=== PATIENT | male | born 1940 | race Caucasian/White ===

== ENCOUNTER 2019-03-08 18:19 | Inpatient (IN) | payer MEDICARE, OTHER ==
--- NOTE | 2019-03-08 19:00 | EDM.PDOC ---
ED HPI GENERAL MEDICAL PROBLEM - General Chief Complaint: General Stated Complaint: EVAL FOR EXTREME WEIGHT LOSS Time Seen by Provider: 03/08/19 18:59 - History of Present Illness INITIAL COMMENTS - FREE TEXT/NARRATIVE: 78-year-old male presents emergency room with weight loss and generally not doing well. Patiently recently moved here from [place]. He arrived here on February 22 to be with family. 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 He has a significant past medical history of COPD, CLL and he was recently diagnosed with compression fractures in his back recent MRI shows fairly acute superior endplate fractures at L1 and L3 old compression fracture at L2. He is having significant weight loss with talking to the patient he is not eating much because she's not getting fed very much. He was in assisted living center in [place] and ate quite a bit. But appear he's just not eating he said when he was at [facility] he had very small servings. His daughter states she's tries to make an thinks he likes please just not eating he's lost well over 10 pounds since he's been here. He has oxygen dependent COPD - Related Data Allergies Allergy/AdvReac Type Severity Reaction Status Date / Time No Known Allergies Allergy Verified 03/08/19 18:33 Home Meds: Home Meds Acetaminophen 1,000 mg PO DAILY 03/08/19 [History] Albuterol Sulfate 1 puff INH Q6HR 03/08/19 [History] Atenolol 25 mg PO BID 03/08/19 [History] Budesonide 2 puff INH BID 03/08/19 [History] Ferrous Sulfate 325 mg PO BID 03/08/19 [History] Furosemide 80 mg PO DAILY 03/08/19 [History] Pantoprazole Sodium 40 mg PO BID 03/08/19 [History] Potassium Chloride 20 meq PO DAILY 03/08/19 [History] Tamsulosin HCl 0.4 mg PO DAILY 03/08/19 [History] Tiotropium [Spiriva] 18 mcg INH DAILY 03/08/19 [History] tiZANidine HCl [Tizanidine HCl] 2 mg PO TID 03/08/19 [History] Past Medical History Other HEENT History: allergic rhinitis Cardiovascular History: Reports: High Cholesterol, Hypertension Respiratory History: Reports: COPD Gastrointestinal History: Reports: GERD Genitourinary History: Reports: BPH Other Oncologic History: CLL - Infectious Disease History 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 - Past Surgical History GI Surgical History: Reports: Cholecystectomy, Hernia Repair/Other Neurological Surgical History: Reports: C-Spine Social & Family History - Tobacco Use Smoking Status *Q: Former Smoker Used Tobacco, but Quit: Yes Month/Year Tobacco Last Used: 15 years ago - Caffeine Use Caffeine Use: Reports: Coffee - Recreational Drug Use Recreational Drug Use: No ED ROS GENERAL - Review of Systems Review Of Systems: See Below Constitutional: Reports: No Symptoms HEENT: Reports: No Symptoms Respiratory: Reports: Shortness of Breath (Chronic no worse than normal), Cough , Sputum (No worse than normal) Cardiovascular: Reports: No Symptoms Endocrine: Reports: No Symptoms GI/Abdominal: Reports: No Symptoms, Decreased Appetite. Denies: Constipation, Diarrhea, Nausea, Vomiting : Reports: No Symptoms Musculoskeletal: Reports: No Symptoms Skin: Reports: No Symptoms Neurological: Reports: No Symptoms Psychiatric: Reports: No Symptoms Hematologic/Lymphatic: Reports: Other (History of CLL he gets follow-ups every 6 months) ED EXAM, GENERAL - Physical Exam Exam: See Below Exam Limited By: No Limitations General Appearance: Alert, No Apparent Distress Eye Exam: Bilateral Eye: Normal Inspection Ears: Normal External Exam, Normal Canal, Hearing Grossly Normal, Normal TMs Nose: Normal Inspection, Normal Mucosa, No Blood Throat/Mouth: Normal Inspection, Normal Lips, Normal Gums, Normal Oropharynx, Normal Voice, No Airway Compromise, Other (Semi-dry mucosa) Head: Atraumatic, Normocephalic Neck: Normal Inspection, Supple, Non-Tender, Full Range of Motion. No: Lymphadenopathy (L), Lymphadenopathy (R) Respiratory/Chest: No Respiratory Distress, Lungs Clear, Normal Breath Sounds Cardiovascular: Regular Rate, Rhythm, No Edema, No Murmur GI/Abdominal: Normal Bowel Sounds, Soft, Non-Tender Back Exam: Normal Inspection, Vertebral Tenderness (In the upper lumbar region) . No: CVA Tenderness (L), CVA Tenderness (R) Extremities: Normal Inspection, Non-Tender Neurological: Alert, Oriented, Normal Cognition Psychiatric: Normal Affect, Normal Mood Skin Exam: Warm, Dry, Intact, Other (He has off color scanned almost looks jaundiced) Course - Vital Signs Last Recorded V/S: Last Vital Signs Temp 36.4 C 03/08/19 18:33 Pulse 72 03/08/19 18:33 Resp 16 03/08/19 18:33 BP 138/45 L 03/08/19 18:33 Pulse Ox 90 L 03/08/19 18:33 - Orders/Labs/Meds Orders: Active Orders 24 hr Category Date Time Status EKG Documentation Completion [RC] STAT Care 03/08/19 19:29 Active Chest 2V [CR] Stat Exams 03/08/19 19:27 Taken Sodium Chloride 0.45% @ 75 MLS/HR(1000ml) Med 03/08/19 22:30 Ordered Sodium Chloride 0.45% 1,000 ml IV ASDIRECTED Medication Orders Sodium Chloride (Sodium Chloride 0.45%) 1,000 mls @ 75 mls/hr IV ASDIRECTED RODRICK Last Admin: 03/08/19 22:40 Dose: 75 mls/hr Labs: Laboratory Tests 03/08/19 03/08/19 03/08/19 Range/Units 19:52 19:52 19:52 WBC 35.51 H (4.23-9.07) K/mm3 RBC 3.64 L (4.63-6.08) M/mm3 Hgb 11.0 L (13.7-17.5) gm/L Hct 37.0 L (40.1-51.0) % MCV 101.6 H (79.0-92.2) fl MCH 30.2 (25.7-32.2) pg MCHC 29.7 L (32.2-35.5) g/dl RDW Std Deviation 49.3 H (35.1-43.9) fL Plt Count 75 L (163-337) K/mm3 MPV 9.9 (9.4-12.3) fl Neutrophils % (Manual) 11 L (40-60) % Band Neutrophils % 2 (0-10) % Lymphocytes % (Manual) 86 H (20-40) % Atypical Lymphs % 0 % Monocytes % (Manual) 0 L (2-10) % Eosinophils % (Manual) 1 (0.8-7.0) % Basophils % (Manual) 0 L (0.2-1.2) Platelet Estimate Marked dec Plt Morphology Comment Normal Hypochromasia 1+ slight Anisocytosis 2+ moderate Macrocytosis 2+ moderate Ovalocytes 2+ moderate RBC Morph Comment Not Reportable PT 10.3 (9.5-12.1) SECONDS INR 0.94 Sodium 143 (136-145) mEq/L Potassium 5.2 H (3.5-5.1) mEq/L Chloride 104 (98-107) mEq/L Carbon Dioxide 37 H (21-32) mEq/L Anion Gap 7.2 (5-15) BUN 47 H (7-18) mg/dL Creatinine 1.1 (0.7-1.3) mg/dL Est Cr Clr Drug Dosing 56.24 mL/min Estimated GFR (MDRD) > 60 (>60) mL/min BUN/Creatinine Ratio 42.7 H (14-18) Glucose 100 (83-115) mg/dL Calcium 9.0 (8.5-10.1) mg/dL Total Bilirubin 0.7 (0.2-1.0) mg/dL AST 9 L (15-37) U/L ALT 12 L (16-63) U/L Alkaline Phosphatase 94 (46-116) U/L Total Protein 6.6 (6.4-8.2) g/dl Albumin 3.0 L (3.4-5.0) g/dl Globulin 3.6 gm/dL Albumin/Globulin Ratio 0.8 L (1-2) Urine Color (Yellow) Urine Appearance (Clear) Urine pH (5.0-8.0) Ur Specific [place] (1.005-1.030) Urine Protein (Negative) Urine Glucose (UA) (Negative) Urine Ketones (Negative) Urine Occult Blood (Negative) Urine Nitrite (Negative) Urine Bilirubin (Negative) Urine Urobilinogen (0.2-1.0) Ur Leukocyte Esterase (Negative) Urine RBC (0-5) /hpf Urine WBC (0-5) /hpf Ur Squamous Epith Cells (0-5) /hpf Urine Bacteria (FEW) /hpf Urine Mucus (FEW) /hpf 03/08/19 Range/Units 21:21 WBC (4.23-9.07) K/mm3 RBC (4.63-6.08) M/mm3 Hgb (13.7-17.5) gm/L Hct (40.1-51.0) % MCV (79.0-92.2) fl MCH (25.7-32.2) pg MCHC (32.2-35.5) g/dl RDW Std Deviation (35.1-43.9) fL Plt Count (163-337) K/mm3 MPV (9.4-12.3) fl Neutrophils % (Manual) (40-60) % Band Neutrophils % (0-10) % Lymphocytes % (Manual) (20-40) % Atypical Lymphs % % Monocytes % (Manual) (2-10) % Eosinophils % (Manual) (0.8-7.0) % Basophils % (Manual) (0.2-1.2) Platelet Estimate Plt Morphology Comment Hypochromasia Anisocytosis Macrocytosis Ovalocytes RBC Morph Comment PT (9.5-12.1) SECONDS INR Sodium (136-145) mEq/L Potassium (3.5-5.1) mEq/L Chloride (98-107) mEq/L Carbon Dioxide (21-32) mEq/L Anion Gap (5-15) BUN (7-18) mg/dL Creatinine (0.7-1.3) mg/dL Est Cr Clr Drug Dosing mL/min Estimated GFR (MDRD) (>60) mL/min BUN/Creatinine Ratio (14-18) Glucose (83-115) mg/dL Calcium (8.5-10.1) mg/dL Total Bilirubin (0.2-1.0) mg/dL AST (15-37) U/L ALT (16-63) U/L Alkaline Phosphatase (46-116) U/L Total Protein (6.4-8.2) g/dl Albumin (3.4-5.0) g/dl Globulin gm/dL Albumin/Globulin Ratio (1-2) Urine Color Yellow (Yellow) Urine Appearance Clear (Clear) Urine pH 5.5 (5.0-8.0) Ur Specific [place] 1.020 (1.005-1.030) Urine Protein Negative (Negative) Urine Glucose (UA) Negative (Negative) Urine Ketones Negative (Negative) Urine Occult Blood 1+ H (Negative) Urine Nitrite Negative (Negative) Urine Bilirubin 1+ H (Negative) Urine Urobilinogen 0.2 (0.2-1.0) Ur Leukocyte Esterase Negative (Negative) Urine RBC Not seen (0-5) /hpf Urine WBC 0-5 (0-5) /hpf Ur Squamous Epith Cells 5-10 H (0-5) /hpf Urine Bacteria Not seen (FEW) /hpf Urine Mucus Not seen (FEW) /hpf Meds: Medications Generic Name Dose Route Start Last Admin Trade Name Kinza PRN Reason Stop Dose Admin Sodium Chloride 1,000 mls @ 75 mls/hr 03/08/19 22:30 03/08/19 22:40 Sodium Chloride 0.45% IV 75 mls/hr ASDIRECTED RODRICK Administration - Re-Assessments/Exams Free Text/Narrative Re-Assessment/Exam: 03/08/19 22:51 This gentleman is having difficulties maintaining his weight. He has a history of CLL COPD and has recently been diagnosed with compression fractures in the back recent MRI shows fairly acute fractures at L1 and L3 with soup. Endplate deformity retropulsion into the canal he is not having symptoms other than localized back pain from this that he has an old compression fracture at L2. Laboratory evaluation shows that he is dry potassium slightly elevated at 5.2 sodium and chloride are normal restarted on a gentle fluid of half and S at 75 mL an hour because I don't know if he will tolerate large doses of fluid.. Patient will be placed on I do not know the status of him going back to a [facility] facility. And he may have the possibility of making a back home with his daughter. The patient is a DNR. We are to treat with easily treatable patient and family do not wish to be transferred if services are not available here. 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 Departure - Departure Time of Disposition: 22:54 Disposition: Refer to Observation Clinical Impression: Failure to thrive, CLL (chronic lymphocytic leukemia) - Discharge Information Referrals: Alda Hauser PA-C [Primary Care Provider] - Forms: ED Department Discharge - My Orders Last 24 Hours: My Active Orders 03/08/19 19:27 Chest 2V [CR] Stat 03/08/19 19:29 EKG Documentation Completion [RC] STAT 03/08/19 22:30 Sodium Chloride 0.45% @ 75 MLS/HR(1000ml) Sodium Chloride 0.45% 1,000 ml IV ASDIRECTED - Assessment/Plan Last 24 Hours: My Active Orders 03/08/19 19:27 Chest 2V [CR] Stat 03/08/19 19:29 EKG Documentation Completion [RC] STAT 03/08/19 22:30 Sodium Chloride 0.45% @ 75 MLS/HR(1000ml) Sodium Chloride 0.45% 1,000 ml IV ASDIRECTED
[2019-03-08] MEDS ORDERED: Sodium Chloride 0.45% 1,000 ML IV SCH (22:30)
[2019-03-09] MEDS ORDERED: cefTRIAXone 2 GM in Sodium Chloride 0.9% 100 ML IV ONE ×4 (00:06→02:15)
[2019-03-09] MEDS ORDERED: Doxycycline 100 MG Cap PO ONE ×2 (00:08→02:00)
[2019-03-09] MEDS ORDERED: Acetaminophen/oxyCODONE 325-5 MG Tab PO PRN (00:19)
[2019-03-09] MEDS ORDERED: Acetaminophen 325 MG Tab PO PRN (00:43)
--- NOTE | 2019-03-09 07:20 | CR ---
Chest: Two views of the chest are obtained. Comparison: No prior chest imaging is available. Heart size is normal. Tortuous thoracic aorta is seen. Slight scarring noted within the right lung base which appears to be within the right middle lobe on the lateral view. Lung markings are mildly increased which are most likely chronic but would need old chest x-rays to confirm. Diaphragms are flattened on the lateral view compatible with emphysematous change. Bony structures are osteopenic. Scoliosis is noted within the spine. Impression: 1. Emphysematous change. 2. Presumed scarring within the right middle lobe. No definite acute parenchymal change is definitely seen. If patient continues to be symptomatic, follow-up study could be considered to confirm stability of the chest x-ray. Diagnostic code #3 I agree with preliminary report issued by [facility] ([facility] report finalized on 5018, 1:02 AM Central Time.) Code #2
--- NOTE | 2019-03-09 07:32 | PCM.HP.2 ---
H&P History of Present Illness - General Date of Service: 03/09/19 Admit Problem/Dx: Admission Diagnosis/Problem Admission Diagnosis/Problem Failure to thrive in adult Source of Information: Patient, Old Records, Provider, RN, RN Notes Reviewed History Limitations: Reports: No Limitations - History of Present Illness Initial Comments - Free Text/Narative: Rafy Palacio is a 78-year-old male who presents to our ED on 03/08/19 with weight loss and failure to thrive. Patient's daughter reports she was trying to have the patient establish with a primary care provider locally. He was being seen by Alda Hauser PA-C, who sent the patient down to the emergency room. He reportedly is also trying to establish with Dr. Guzman but that appointment is not for several weeks. The patient had reportedly recently moved here from [place], arriving on February 22. She was reportedly laced in assisted living however shortly after being admitted he was "infected" due to the arm wound growing out resistant Klebsiella pneumoniae ESBL/Kpc and enterococcus faecalis. He does carry history of COPD and CLL. He also was recently diagnosed with compression fractures in his back. This was noted on MRI showing acute fairly acute endplate fractures at L1 and L3 along with the old compression fracture at L2. Patient reports he lost quite a bit of weight and he is not being fed very much. His reportedly in assisted living in [place] and was doing much better. He's been living with his daughter who has been attempting to make things he'll eat but she states he just isn't eating much. He's lost well over 10 pounds since he's been here. He is oxygen dependent due to COPD with 2 L at all times and 3 L with activity. In the ED temperature 36.4 Celsius. Pulse 72. Respirations 16. Blood pressure 138/45. Pulse ox 90%. Labs are obtained showing a WBC of 35.51. Hemoglobin 11.0. Hematocrit 37.0. He is macrocytic. Platelets are low at 75, 000. Neutrophils are low at 11%. There is 2% bandemia. PT is 10.3. INR 0.94. Sodium is 143. Potassium is high at 5.2. Chloride is 104. Carbon monoxide is high at 37. Anion gap is 7.2. BUN is high at 47. Creatinine is 1.1. EGFR greater than 60. Glucose is 100. Calcium 9.0. Total bilirubin 0.7. AST is 9, ALT 12, alkaline phosphatase 94. Protein is good at 6.6. Albumin is low at 3.0. UA is negative however one plus occult blood 1+ bilirubin, and 5-10 squamous epithelial cells are noted. Twelve-lead EKG is obtained showing sinus rhythm at 52 bpm with a right bundle branch block. He started on NS at 75 mils an hour. 2 view chest x-rays obtained and there is a questionable infiltrate noted in the retrocardiac region. This was later over read by Dr. Huffman who noted "1. Emphysematous change. 2. Presumed scarring within the right middle lobe. No definite acute parenchymal changes definitively seen. If patient continues to be symptomatic, follow-up study could be considered to confirm stability of the chest x-ray." He carries a history of allergic rhinitis, HLD, hypertension, COPD, GERD, BPH, CLL. He is a former smoker. His PCP is Alda Humphreys PA-C, although he is set to see Dr. Guzman in the next few weeks. He subsequently admitted for failure to thrive and a possible pneumonia. - Related Data Allergies/Adverse Reactions: Allergies Allergy/AdvReac Type Severity Reaction Status Date / Time No Known Allergies Allergy Verified 03/08/19 18:33 Home Medications: Home Meds Acetaminophen 1,000 mg PO BEDTIME 03/08/19 [History] Albuterol Sulfate 1 puff INH Q6HR 03/08/19 [History] Atenolol 25 mg PO BID 03/08/19 [History] Budesonide 2 puff INH BID 03/08/19 [History] Ferrous Sulfate 325 mg PO BID 03/08/19 [History] Furosemide 80 mg PO DAILY 03/08/19 [History] Pantoprazole Sodium 40 mg PO BID 03/08/19 [History] Potassium Chloride 20 meq PO DAILY 03/08/19 [History] Tamsulosin HCl 0.4 mg PO DAILY 03/08/19 [History] Tiotropium [Spiriva] 18 mcg INH DAILY 03/08/19 [History] tiZANidine HCl [Tizanidine HCl] 2 mg PO TID PRN 03/08/19 [History] Past Medical History Other HEENT History: allergic rhinitis Cardiovascular History: Reports: Heart Failure, High Cholesterol, Hypertension, SOB on Exertion Respiratory History: Reports: Bronchitis, Recurrent, COPD, Pneumonia, Recurrent Gastrointestinal History: Reports: GERD Genitourinary History: Reports: BPH Musculoskeletal History: Reports: Neck Pain, Chronic Other Oncologic History: CLL - Infectious Disease History Infectious Disease History: Reports: Chicken Pox, [id number]-Afgvbkyymw-Takoqwjxz Enterobacteriaceae, Measles, Mumps - Past Surgical History HEENT Surgical History: Reports: None Cardiovascular Surgical History: Reports: None Respiratory Surgical History: Reports: None GI Surgical History: Reports: Cholecystectomy, Hernia Repair/Other Other GI Surgeries/Procedures: Hernia repair to bilat sides Male Surgical History: Reports: None Neurological Surgical History: Reports: C-Spine, Other (See Below) Other Neurological Surgeries/Procedures: Several fusions to the upper neck and back Musculoskeletal Surgical History: Reports: Other (See Below) Other Musculoskeletal Surgeries/Procedures:: Neck surgery with fusion of several vertebrae in the neck and upper back Social & Family History - Family History Family Medical History: Noncontributory - Tobacco Use Smoking Status *Q: Former Smoker Used Tobacco, but Quit: Yes Month/Year Tobacco Last Used: 1999 Second Hand Smoke Exposure: No - Caffeine Use Caffeine Use: Reports: None - Recreational Drug Use Recreational Drug Use: No H&P Review of Systems - Review of Systems: Review Of Systems: See Below Free Text/Narrative: Patient reports he feels exactly the same as he always does. Denies any acute symptoms or concerns over sickness. He reports he was recently discharged from the hospital in [place] from [facility]. He is still noted to have adhesive on left leg from [employer]. Daughter reports patient was only brought to ED due to weight loss and being told to go to ED by new PCP. General: Reports: Weakness, Weight Loss. Denies: Fever, Chills, Malaise, Fatigue, Night Sweats HEENT: Reports: No Symptoms. Denies: Headaches, Sore Throat Pulmonary: Reports: Shortness of Breath (Chronic but currently at baseline ), Cough (chronic - currenlty at ). Denies: Wheezing, Pleuritic Chest Pain, Sputum Cardiovascular: Reports: No Symptoms. Denies: Chest Pain, Edema Gastrointestinal: Reports: No Symptoms. Denies: Abdominal Pain, Melena, Nausea , Vomiting Genitourinary: Reports: No Symptoms. Denies: Pain Musculoskeletal: Reports: No Symptoms. Denies: Neck Pain, Shoulder Pain, Back Pain, Leg Pain, Muscle Pain Skin: Reports: Bruising (Scattered bruising ). Denies: Cyanosis Psychiatric: Reports: No Symptoms. Denies: Confusion Neurological: Reports: No Symptoms, Difficulty Walking, Weakness, Gait Disturbance. Denies: Confusion, Dizziness, Headache, Numbness, Paresthesia, Seizure, Syncope, Tremors, Trouble Speaking, Change in Speech Hematologic/Lymphatic: Reports: Anemia (Chronic ), Easy Bruising Immunologic: Reports: No Symptoms Exam - Exam Exam: See Below - Vital Signs Vital Signs: Last Vital Signs Temp 97.7 F 03/09/19 04:39 Pulse 69 03/09/19 04:39 Resp 12 03/09/19 04:39 BP 130/70 03/09/19 04:39 Pulse Ox 98 03/09/19 04:39 Weight: 135 lb 3.2 oz - Exam Quality Assessment: Supplemental Oxygen (Chronic 2L daily, 3L at night - currently at baseline ) General: Alert, Oriented, Cooperative. No: Mild Distress HEENT: Conjunctiva Clear, EACs Clear, EOMI, Hearing Intact, Mucosa Moist & [place] , Posterior Pharynx Clear, PERRLA Neck: Supple, Trachea Midline Lungs: Normal Respiratory Effort, Decreased Breath Sounds. No: Crackles, Rales , Rhonchi, Wheezing Cardiovascular: Regular Rate, Regular Rhythm GI/Abdominal Exam: Normal Bowel Sounds, Soft, Non-Tender, No Organomegaly, No Distention (Male) Exam: Deferred Rectal (Males) Exam: Deferred Back Exam: Decreased Range of Motion, Other (Scoliosis ) Peripheral Pulses: 2+: Radial (L), Radial (R), Dorsalis Pedis (L), Dorsalis Pedis (R) Skin: Warm, Dry, Ecchymosis (Scattered ), Other (Excoriations over buttocks and in groin. Nursing applied a mepilex to area. ) Neurological: Cranial Nerves Intact (Grossly ) Neuro Extensive - Mental Status: Alert, Oriented x3, Normal Mood/Affect, Normal Cognition - Patient Data Lab Results Last 24 hrs: Laboratory Results - last 24 hr 03/08/19 03/08/19 03/08/19 Range/Units 19:52 19:52 19:52 WBC 35.51 H (4.23-9.07) K/mm3 RBC 3.64 L (4.63-6.08) M/mm3 Hgb 11.0 L (13.7-17.5) gm/L Hct 37.0 L (40.1-51.0) % MCV 101.6 H (79.0-92.2) fl MCH 30.2 (25.7-32.2) pg MCHC 29.7 L (32.2-35.5) g/dl RDW Std Deviation 49.3 H (35.1-43.9) fL Plt Count 75 L (163-337) K/mm3 MPV 9.9 (9.4-12.3) fl Neutrophils % (Manual) 11 L (40-60) % Band Neutrophils % 2 (0-10) % Lymphocytes % (Manual) 86 H (20-40) % Atypical Lymphs % 0 % Monocytes % (Manual) 0 L (2-10) % Eosinophils % (Manual) 1 (0.8-7.0) % Basophils % (Manual) 0 L (0.2-1.2) Differential Comment See note Platelet Estimate Marked dec Plt Morphology Comment Normal Hypochromasia 1+ slight Anisocytosis 2+ moderate Macrocytosis 2+ moderate Ovalocytes 2+ moderate RBC Morph Comment Not Reportable PT 10.3 (9.5-12.1) SECONDS INR 0.94 Sodium 143 (136-145) mEq/L Potassium 5.2 H (3.5-5.1) mEq/L Chloride 104 (98-107) mEq/L Carbon Dioxide 37 H (21-32) mEq/L Anion Gap 7.2 (5-15) BUN 47 H (7-18) mg/dL Creatinine 1.1 (0.7-1.3) mg/dL Est Cr Clr Drug Dosing 56.24 mL/min Estimated GFR (MDRD) > 60 (>60) mL/min BUN/Creatinine Ratio 42.7 H (14-18) Glucose 100 (83-115) mg/dL Calcium 9.0 (8.5-10.1) mg/dL Total Bilirubin 0.7 (0.2-1.0) mg/dL AST 9 L (15-37) U/L ALT 12 L (16-63) U/L Alkaline Phosphatase 94 (46-116) U/L Total Protein 6.6 (6.4-8.2) g/dl Albumin 3.0 L (3.4-5.0) g/dl Globulin 3.6 gm/dL Albumin/Globulin Ratio 0.8 L (1-2) Urine Color (Yellow) Urine Appearance (Clear) Urine pH (5.0-8.0) Ur Specific [place] (1.005-1.030) Urine Protein (Negative) Urine Glucose (UA) (Negative) Urine Ketones (Negative) Urine Occult Blood (Negative) Urine Nitrite (Negative) Urine Bilirubin (Negative) Urine Urobilinogen (0.2-1.0) Ur Leukocyte Esterase (Negative) Urine RBC (0-5) /hpf Urine WBC (0-5) /hpf Ur Squamous Epith Cells (0-5) /hpf Urine Bacteria (FEW) /hpf Urine Mucus (FEW) /hpf 03/08/19 03/09/19 Range/Units 21:21 06:00 WBC (4.23-9.07) K/mm3 RBC (4.63-6.08) M/mm3 Hgb (13.7-17.5) gm/L Hct (40.1-51.0) % MCV (79.0-92.2) fl MCH (25.7-32.2) pg MCHC (32.2-35.5) g/dl RDW Std Deviation (35.1-43.9) fL Plt Count (163-337) K/mm3 MPV (9.4-12.3) fl Neutrophils % (Manual) (40-60) % Band Neutrophils % (0-10) % Lymphocytes % (Manual) (20-40) % Atypical Lymphs % % Monocytes % (Manual) (2-10) % Eosinophils % (Manual) (0.8-7.0) % Basophils % (Manual) (0.2-1.2) Differential Comment Platelet Estimate Plt Morphology Comment Hypochromasia Anisocytosis Macrocytosis Ovalocytes RBC Morph Comment PT (9.5-12.1) SECONDS INR Sodium 143 (136-145) mEq/L Potassium 4.7 (3.5-5.1) mEq/L Chloride 103 (98-107) mEq/L Carbon Dioxide 35 H (21-32) mEq/L Anion Gap 9.7 (5-15) BUN 42 H (7-18) mg/dL Creatinine 1.0 (0.7-1.3) mg/dL Est Cr Clr Drug Dosing 53.66 mL/min Estimated GFR (MDRD) > 60 (>60) mL/min BUN/Creatinine Ratio 42.0 H (14-18) Glucose 91 (83-115) mg/dL Calcium 8.7 (8.5-10.1) mg/dL Total Bilirubin (0.2-1.0) mg/dL AST (15-37) U/L ALT (16-63) U/L Alkaline Phosphatase (46-116) U/L Total Protein (6.4-8.2) g/dl Albumin (3.4-5.0) g/dl Globulin gm/dL Albumin/Globulin Ratio (1-2) Urine Color Yellow (Yellow) Urine Appearance Clear (Clear) Urine pH 5.5 (5.0-8.0) Ur Specific [place] 1.020 (1.005-1.030) Urine Protein Negative (Negative) Urine Glucose (UA) Negative (Negative) Urine Ketones Negative (Negative) Urine Occult Blood 1+ H (Negative) Urine Nitrite Negative (Negative) Urine Bilirubin 1+ H (Negative) Urine Urobilinogen 0.2 (0.2-1.0) Ur Leukocyte Esterase Negative (Negative) Urine RBC Not seen (0-5) /hpf Urine WBC 0-5 (0-5) /hpf Ur Squamous Epith Cells 5-10 H (0-5) /hpf Urine Bacteria Not seen (FEW) /hpf Urine Mucus Not seen (FEW) /hpf Result Diagrams: 03/08/19 19:52 03/09/19 06:00 - Problem List (1) Hospital admission due to social situation SNOMED Code(s): 939195299 ICD Code: Z60.9 - PROBLEM RELATED TO SOCIAL ENVIRONMENT, UNSPECIFIED Status : Acute Priority: High Current Visit: Yes (2) CLL (chronic lymphocytic leukemia) SNOMED Code(s): 30581807 ICD Code: C91.90 - LYMPHOID LEUKEMIA, UNSPECIFIED NOT HAVING ACHIEVED REMISSION Status: Chronic Priority: High Current Visit: Yes (3) Failure to thrive SNOMED Code(s): 36567980 ICD Code: GYQ9254 - Status: Acute Priority: High Current Visit: Yes Qualifiers: Failure to thrive age range: in adult Qualified Code(s): R62.7 - Adult failure to thrive Problem List Initiated/Reviewed/Updated: Yes Orders Last 24hrs: Active Orders 24 hr Category Date Time Status Admission Status [Patient Status] [ADT] Routine ADT 03/08/19 23:33 Active Communication Order [RC] BID Care 03/09/19 00:27 Active Oxygen Therapy Adult [Oxygen Therapy] [RC] ASDIRECTED Care 03/09/19 02:56 Active Up With Assistance [RC] BID Care 03/09/19 00:24 Active Consult to Digital Production Artist [CONS] Routine Cons 03/09/19 00:26 Active Consult to Physical Therapy [PT Evaluation and Cons 03/09/19 00:25 Active Treatment] [CONS] Routine Regular Diet [DIET] Diet 03/09/19 Breakfast Active CXR [Chest 2V] [CR] Routine Exams 03/09/19 07:30 Ordered CULTURE BLOOD [BC] Stat Lab 03/09/19 01:51 Received CULTURE BLOOD [BC] Stat Lab 03/09/19 01:59 Received Acetaminophen [Tylenol] Med 03/09/19 00:43 Active 500 mg PO BEDTIME PRN Sodium Chloride 0.45% 1,000 ml Med 03/08/19 22:30 Active IV ASDIRECTED Blood Culture x2 Reflex Set [OM.PC] Stat Oth 03/09/19 00:05 Ordered Resuscitation Status Routine Resus Stat 03/09/19 00:24 Ordered Medication Orders Acetaminophen (Tylenol) 500 mg PO BEDTIME PRN PRN Reason: Pain Sodium Chloride (Sodium Chloride 0.45%) 1,000 mls @ 75 mls/hr IV ASDIRECTED RODRICK Last Admin: 03/08/19 22:40 Dose: 75 mls/hr Assessment/Plan Comment:: Assessment: * 78 yo male with CLL, COPD, HLD, HTN, GERD, and BPH admitted to floor for possible PNA and failure to thrive * Currently living with daughter and her 2 children after moving here in end of January * Very thin, has reportedly had significant weight loss and lack of appetite * Was in an [facility] in [place] prior to coming here. Was at [facility] here until recently * Several excoriations on buttocks and groin * Several bruises throughout body * Chronically O2 dependant: 2L always; 3L with activity - currently at baseline * No signs of active cellulitis during physical exam Plan: * Admit to hospital observation status * PT/OT * Digital Production Artist consult * CM/SW for discharge planning * Start Marinol BID for appetite * Routine AM labs * Repeat CXR: Stable lung markings; Linear densities appear to be fibrosis; Emphysematous change * No need for ABX * VTE score of 5: unfortunately pharmacological prophylaxis is contraindicated due to low platelets and DAVE/SCDs contraindicated due to significant bruising and condition of skin * Attempt to obtain old records from [place] * Stop IV fluids * O2 as needed * Back brace 2/2 lumbar compression fractures per PT.
[2019-03-09] MEDS ORDERED: Bisacodyl 5 MG Tab PO PRN (07:45)
[2019-03-09] MEDS ORDERED: Ondansetron 4 MG/2 ML SDV IV PRN (07:45)
[2019-03-09] MEDS ORDERED: Docusate Sodium 100 MG Cap PO PRN (07:45)
[2019-03-09] MEDS ORDERED: Ondansetron 4 MG Tab.DIS PO PRN (07:45)
[2019-03-09] MEDS ORDERED: Polyethylene Glycol 3350 Powder 17 GM Packet PO PRN (07:45)
[2019-03-09] MEDS ORDERED: Albuterol/Ipratropium 3.0-0.5 MG/3 ML Neb Soln NEB PRN (07:45)
--- NOTE | 2019-03-09 09:47 | CR ---
Chest: Two views of the chest were obtained. Comparison: Prior chest x-ray of 03/08/19. Increased lung markings are noted which appear stable. Stable linear densities within the right base/right middle lobe most likely due to fibrosis. No alveolar densities are appreciated. Emphysematous change is again seen. Heart size is normal. Tortuous thoracic aorta is seen. Mild degenerative change is noted within the spine with scoliosis. Impression: 1. Stable findings as noted above. Diagnostic code #3
[2019-03-09] MEDS ORDERED: PANTOPRAZOLE SODIUM 40 MG PO SCH (10:00)
[2019-03-09] MEDS ORDERED: TAMSULOSIN HCL 0.4 MG PO SCH (10:00)
[2019-03-09] MEDS ORDERED: ATENOLOL 25 MG PO SCH (10:00)
[2019-03-09] MEDS ORDERED: TIZANIDINE HCL 2 MG PO SCH (10:00)
[2019-03-09] MEDS: Ferrous Sulfate 325 MG Tab PO SCH (10:36)
[2019-03-09] MEDS: Furosemide 80 MG Tab PO SCH (10:43)
[2019-03-09] MEDS ORDERED: TIZANIDINE HCL 2 MG PO PRN (11:30)
[2019-03-09] MEDS ORDERED: IPRATROPIUM NEB PRN (12:00)
[2019-03-09] MEDS ORDERED: ALBUTEROL NEB PRN (12:00)
[2019-03-09] MEDS: TIOTROPIUM INH SCH ×2 (14:40→14:47)
[2019-03-09] MEDS ORDERED: Piperacillin/Tazobactam 4.5 GM in Sodium Chloride 0.9% 100 ML IV ONE (16:15)
[2019-03-09] MEDS ORDERED: Vancomycin 1.5 GM in Sodium Chloride 0.9% 500 ML IV ONE ×2 (16:30→18:30)
[2019-03-09] MEDS: Dronabinol 2.5 MG Cap PO SCH (16:52)
[2019-03-09] MEDS ORDERED: Sodium Chloride 0.9% 500 ML IV ONE (17:15)
[2019-03-09] MEDS ORDERED: Iopamidol 755 Mg/ML 100 ML Bottle IVPUSH ONE (17:23)
[2019-03-09] MEDS ORDERED: Sodium Chloride 0.9% 10 ML Syringe FLUSH SCH (17:30)
[2019-03-09] MEDS ORDERED: Sodium Chloride 0.9% 100 ML IV SCH (17:30)
[2019-03-09] MEDS ORDERED: Albuterol/Ipratropium 3.0-0.5 MG/3 ML Neb Soln INH PRN (18:55)
[2019-03-09] MEDS ORDERED: tiZANidine 4 MG Tab PO PRN (19:06)
[2019-03-09] MEDS: Atenolol 25 MG Tab PO SCH (20:16)
[2019-03-09] MEDS: Pantoprazole 40 MG Tab.CR PO SCH (20:17)
[2019-03-09] MEDS ORDERED: Acetaminophen 325 MG Tab PO SCH (21:00)
[2019-03-10] MEDS: Piperacillin/Tazobactam 4.5 GM in Sodium Chloride 0.9% 100 ML IV SCH ×2 (00:22→08:50)
--- NOTE | 2019-03-10 06:35 | PCM.PN ---
<Hipolito Liang - Last Filed: 03/10/19 15:00> - General Info Date of Service: 03/10/19 Admission Dx/Problem (Free Text): Admission Diagnosis/Problem Admission Diagnosis/Problem Failure to thrive in adult Subjective Update: in to see Rafy. He reports that he feels pretty good today. He did have a rather busy night as there was some concern over possible sepsis. He was started on vancomycin and Zosyn. This was stopped today as his lactic acid has been normal CRP was low, and infectious workup has been negative. Of note he has also fallen off of the sepsis screening risk guidelines and is no longer considered a sepsis risk. Labs remained stable with elevated WBC and low platelets. D-dimer was obtained last night and was elevated so a CTA was obtained. This showed no signs of pulmonary embolism or pneumonia however a possible pancreatic mass and scattered lymphadenopathy was noted. Due to this I radiologist, Dr. Huffman, recommended obtaining a abdomen and pelvis CT. These findings were discussed with patient and his family this morning and they agreed to proceeding. CT of the abdomen and pelvis was obtained and interpreted by Dr. Huffman as "1. Extensive retroperitoneal and mesenteric adenopathy as well as additional adenopathy within the inguinal regions. 2. Adenopathy surrounds the pancreas with no discrete pancreatic mass being seen. 3. Compression fractures. He within L1 which likely are fairly acute as there are lucent fracture lines being seen. More severe compression deformities at L2 is likely old as no fracture lines are seen. 4. Splenomegaly 5. Small amount of air within the liver which is most likely due to previous intervention at the sphincter of OD. 6. Other findings felt to be incidental as noted above. " Of note, Dr. Huffman does think the adenopathy is likely due to lymphoma. these results were discussed with the patient and his family and they would like us to try to see if we can get him accepted at a [facility] facility, likely in [place], for further treatment. He is a DNR/DNI however they would like to see oncology. Social work has been in communication with them. Otherwise no acute concerns, back pain remained stable. He continues to work with PT/OT. No nursing concerns. Patient does request that we removed telemetry of the boxes very annoying for him. This seems like a reasonable request and will be canceled. Functional Status: Reports: Pain Controlled, Tolerating Diet, Ambulating, Urinating. Denies: New Symptoms - Review of Systems General: Reports: Weakness. Denies: Fever, Fatigue, Malaise, Chills HEENT: Denies: Headaches, Sore Throat Pulmonary: Reports: Shortness of Breath (chronic and at baseline ), Cough ( chronic ). Denies: Sputum, Wheezing Cardiovascular: Reports: Dyspnea on Exertion (Chronic and at baseline ). Denies : Chest Pain, Palpitations Gastrointestinal: Reports: No Symptoms. Denies: Abdominal Pain, Constipation, Diarrhea, Nausea, Vomiting Genitourinary: Reports: No Symptoms Musculoskeletal: Reports: Back Pain (Chronic ) Skin: Reports: No Symptoms Neurological: Reports: Difficulty Walking, Weakness, Gait Disturbance. Denies: Confusion, Headache, Numbness, Seizure, Syncope, Tingling, Tremors, Trouble Speaking, Change in Speech Psychiatric: Reports: No Symptoms - Patient Data Vitals - Most Recent: Last Vital Signs Temp 98.1 F 03/10/19 04:13 Pulse 95 03/10/19 04:13 Resp 28 H 03/10/19 04:13 BP 102/75 03/10/19 04:13 Pulse Ox 97 03/10/19 04:13 Weight - Most Recent: 61.326 kg I&O - Last 24 Hours: Intake & Output 03/09/19 03/09/19 03/10/19 14:59 22:59 06:59 Intake Total 300 1710 400 Output Total 1020 600 Balance 300 690 -200 Lab Results Last 24 Hours: Laboratory Results - last 24 hr 03/08/19 03/09/19 03/09/19 Range/Units 19:52 06:00 16:41 Differential Comment See note D-Dimer, Quantitative (0.19-0.50) mg/L Sodium 143 (136-145) mEq/L Potassium 4.7 (3.5-5.1) mEq/L Chloride 103 (98-107) mEq/L Carbon Dioxide 35 H (21-32) mEq/L Anion Gap 9.7 (5-15) BUN 42 H (7-18) mg/dL Creatinine 1.0 (0.7-1.3) mg/dL Est Cr Clr Drug Dosing 53.66 mL/min Estimated GFR (MDRD) > 60 (>60) mL/min BUN/Creatinine Ratio 42.0 H (14-18) Glucose 91 (83-115) mg/dL Lactic Acid 0.9 (0.4-2.0) mmol/L Calcium 8.7 (8.5-10.1) mg/dL C-Reactive Protein (<1.0) mg/dL 03/09/19 03/09/19 Range/Units 16:41 16:41 Differential Comment D-Dimer, Quantitative 2.28 H (0.19-0.50) mg/L Sodium (136-145) mEq/L Potassium (3.5-5.1) mEq/L Chloride (98-107) mEq/L Carbon Dioxide (21-32) mEq/L Anion Gap (5-15) BUN (7-18) mg/dL Creatinine (0.7-1.3) mg/dL Est Cr Clr Drug Dosing mL/min Estimated GFR (MDRD) (>60) mL/min BUN/Creatinine Ratio (14-18) Glucose (83-115) mg/dL Lactic Acid (0.4-2.0) mmol/L Calcium (8.5-10.1) mg/dL C-Reactive Protein 1.9 H* (<1.0) mg/dL Nathan Results Last 24 Hours: Microbiology 03/09/19 01:51 Aerobic Blood Culture - Preliminary Blood - Venous NO GROWTH AFTER 1 DAY Anaerobic Blood Culture - Preliminary NO GROWTH AFTER 1 DAY 03/09/19 01:59 Aerobic Blood Culture - Preliminary Blood - Venous - Lab Draw NO GROWTH AFTER 1 DAY Anaerobic Blood Culture - Preliminary NO GROWTH AFTER 1 DAY Med Orders - Current: Current Medications Acetaminophen (Tylenol) 500 mg PO BEDTIME PRN PRN Reason: Pain Acetaminophen (Tylenol) 975 mg PO BEDTIME [facility] Last Admin: 03/09/19 20:16 Dose: 975 mg Albuterol/Ipratropium (Duoneb 3.0-0.5 Mg/3 Ml) 3 ml INH Q4H PRN PRN Reason: Shortness of Breath Atenolol (Tenormin) 25 mg PO BID [facility] Last Admin: 03/09/19 20:16 Dose: 25 mg Bisacodyl (Dulcolax) 5 mg PO DAILY PRN PRN Reason: Constipation Docusate Sodium (Colace) 100 mg PO BID PRN PRN Reason: Constipation Dronabinol (Marinol) 2.5 mg PO BID@1100,1700 [facility] Last Admin: 03/09/19 16:52 Dose: 2.5 mg Ferrous Sulfate (Ferrous Sulfate) 325 mg PO BID [facility] Last Admin: 03/09/19 10:36 Dose: Not Given Furosemide (Lasix) 80 mg PO DAILY [facility] Last Admin: 03/09/19 10:43 Dose: 80 mg Piperacillin Sod/Tazobactam (Sod 4.5 gm/ Sodium Chloride) 100 mls @ 25 mls/hr IV Q8H [facility] Last Admin: 03/10/19 00:22 Dose: 25 mls/hr Vancomycin HCl 1 gm/ Sodium (Chloride) 250 mls @ 250 mls/hr IV Q12H [facility] Non-Formulary Medication (Budesonide [Budesonide]) 2 puff INH BID [facility] Ondansetron HCl (Zofran) 4 mg IV Q6H PRN PRN Reason: Nausea/Vomiting Ondansetron HCl (Zofran Odt) 4 mg PO Q6H PRN PRN Reason: nausea, able to take PO Pantoprazole Sodium (Protonix) 40 mg PO BID [facility] Last Admin: 03/09/19 20:17 Dose: 40 mg Tiotropium 2.5 Mcg/ (Actuation Ptom) 0 each INH DAILY [facility] Last Admin: 03/09/19 14:47 Dose: Not Given Polyethylene Glycol (Miralax) 17 gm PO DAILY PRN PRN Reason: Constipation Senna/Docusate Sodium (Senna Plus) 1 tab PO BID PRN PRN Reason: Constipation Sodium Chloride (Saline Flush) 10 ml FLUSH ASDIRECTED [facility] Last Admin: 03/09/19 18:20 Dose: 10 ml Tamsulosin HCl (Flomax) 0.4 mg PO DAILY [facility] Tizanidine HCl (Zanaflex) 2 mg PO TID PRN PRN Reason: Muscle Spasm Vancomycin HCl (Pharmacy To Dose - Vancomycin) 1 dose .XX ASDIRECTED [facility] Discontinued Medications Albuterol/Ipratropium (Duoneb 3.0-0.5 Mg/3 Ml) 3 ml NEB Q4H PRN PRN Reason: Shortness Of Breath/wheezing Last Admin: 03/09/19 09:21 Dose: 3 ml Doxycycline Hyclate (Vibramycin) 100 mg PO ONETIME ONE Stop: 03/09/19 00:09 Last Admin: 03/09/19 01:40 Dose: Not Given Doxycycline Hyclate (Vibramycin) 100 mg PO ONETIME ONE Stop: 03/09/19 02:01 Last Admin: 03/09/19 02:20 Dose: 100 mg Sodium Chloride (Sodium Chloride 0.45%) 1,000 mls @ 75 mls/hr IV ASDIRECTED [facility] Last Admin: 03/08/19 22:40 Dose: 75 mls/hr Ceftriaxone Sodium 2 gm/ (Sodium Chloride) 100 mls @ 200 mls/hr IV ONETIME ONE Stop: 03/09/19 00:35 Last Admin: 03/09/19 01:40 Dose: Not Given Ceftriaxone Sodium 2 gm/ (Sodium Chloride) 100 mls @ 200 mls/hr IV ONETIME ONE Stop: 03/09/19 02:29 Last Admin: 03/09/19 05:49 Dose: Not Given Ceftriaxone Sodium 2 gm/ (Sodium Chloride) 100 mls @ 200 mls/hr IV ONETIME ONE Stop: 03/09/19 02:44 Ceftriaxone Sodium 2 gm/ (Sodium Chloride) 100 mls @ 200 mls/hr IV ONETIME ONE Stop: 03/09/19 02:29 Last Admin: 03/09/19 02:18 Dose: 200 mls/hr Piperacillin Sod/Tazobactam (Sod 4.5 gm/ Sodium Chloride) 100 mls @ 100 mls/hr IV ONETIME ONE Stop: 03/09/19 17:14 Last Admin: 03/09/19 16:51 Dose: 100 mls/hr Vancomycin HCl 1.5 gm/ Sodium (Chloride) 500 mls @ 167 mls/hr IV ONETIME ONE Stop: 03/09/19 19:29 Last Admin: 03/09/19 18:34 Dose: Not Given Sodium Chloride (Normal Saline) 500 mls @ 999 mls/hr IV .BOLUS ONE Stop: 03/09/19 17:45 Last Admin: 03/09/19 17:26 Dose: 999 mls/hr Sodium Chloride (Normal Saline) 100 mls @ 3 mls/sec IV ASDIRECTED [facility] Last Admin: 03/09/19 18:20 Dose: 3 mls/sec Vancomycin HCl 1.5 gm/ Sodium (Chloride) 500 mls @ 167 mls/hr IV ONETIME ONE Stop: 03/09/19 21:29 Last Admin: 03/09/19 18:34 Dose: 167 mls/hr Iopamidol (Isovue-370 (76%)) 100 ml IVPUSH ONETIME ONE Stop: 03/09/19 17:24 Last Admin: 03/09/19 18:20 Dose: 100 ml Oxycodone/Acetaminophen (Percocet 325-5 Mg) 1 tab PO BID PRN PRN Reason: Pain Atenolol 25 Mg (Ptom) 0 each PO BID [facility] Last Admin: 03/09/19 10:37 Dose: 1 each Pantoprazole Sodium (40 Mg Ptom) 0 each PO BID [facility] Last Admin: 03/09/19 10:38 Dose: 1 each Tamsulosin Hcl 0.4 (Mg Ptom) 0 each PO DAILY [facility] Last Admin: 03/09/19 10:39 Dose: 1 each Tizanidine Hcl 2 Mg (Ptom) 0 each PO TID [facility] Last Admin: 03/09/19 13:58 Dose: Not Given Albuterol/Ipratropium 3.0-0.5 Mg/3 Ml Neb Soln Ptom 0 each NEB Q4H PRN PRN Reason: Shortness Of Breath/wheezing Last Admin: 03/09/19 16:25 Dose: 3 each Tizanidine Hcl 2 Mg (Ptom) 0 each PO TID PRN PRN Reason: Muscle Spasm - Exam Quality Assessment: Supplemental Oxygen (Chronic and at baseline 3L). No: DVT Prophylaxis (Contraindicated due to low platelets and leg wounds ) General: Alert, Oriented, Cooperative, No Acute Distress HEENT: Pupils Equal, Pupils Reactive, EOMI, Mucous Membr. Moist/[place] Neck: Supple, Trachea Midline Lungs: Normal Respiratory Effort, Decreased Breath Sounds Cardiovascular: Regular Rate, Regular Rhythm GI/Abdominal Exam: Normal Bowel Sounds, Soft, Non-Tender, No Distention, No Abnormal Bruit (Male) Exam: Deferred Back Exam: Normal Inspection, Decreased Range of Motion Extremities: Normal Range of Motion, Non-Tender, No Pedal Edema, Normal Capillary Refill, Other (Scattered bruising ) Peripheral Pulses: 2+: Radial (L), Radial (R), Dorsalis Pedis (L), Dorsalis Pedis (R) Skin: Warm, Dry, Intact Neurological: No New Focal Deficit Psy/Mental Status: Alert, Normal Affect, Normal Mood - Problem List & Annotations (1) Hospital admission due to social situation SNOMED Code(s): 222497924 Code(s): Z60.9 - PROBLEM RELATED TO SOCIAL ENVIRONMENT, UNSPECIFIED Status : Acute Priority: High Current Visit: Yes (2) CLL (chronic lymphocytic leukemia) SNOMED Code(s): 06019482 Code(s): C91.90 - LYMPHOID LEUKEMIA, UNSPECIFIED NOT HAVING ACHIEVED REMISSION Status: Chronic Priority: High Current Visit: Yes (3) Failure to thrive SNOMED Code(s): 11157846 Code(s): XBZ2781 - Status: Acute Priority: High Current Visit: Yes Qualifiers: Failure to thrive age range: in adult Qualified Code(s): R62.7 - Adult failure to thrive - Problem List Review Problem List Initiated/Reviewed/Updated: Yes - My Orders Last 24 Hours: My Active Orders 03/09/19 07:45 Height and Weight [RC] 04 Oxygen Therapy [RC] PRN VTE/DVT Education [RC] BID Vital Signs [RC] Q6H Consult to Case Management/Branch Administrator [CONS] Routine Consult to Spiritual Care [CONS] Routine OT Evaluation and Treatment [CONS] Routine Bisacodyl [Dulcolax] 5 mg PO DAILY PRN Docusate Sodium [Colace] 100 mg PO BID PRN Docusate Sodium/Sennosides [Senna Plus] 1 tab PO BID PRN Ondansetron [Zofran ODT] 4 mg PO Q6H PRN Ondansetron [Zofran] 4 mg IV Q6H PRN Polyethylene Glycol 3350 [MiraLAX] 17 gm PO DAILY PRN 03/09/19 07:46 Pulse Oximetry [RC] PRN 03/09/19 07:48 RT Aerosol Therapy [RC] ASDIRECTED 03/09/19 09:00 Budesonide [Budesonide] 2 puff INH BID Ferrous Sulfate 325 mg PO BID 03/09/19 10:00 Furosemide [Lasix] 80 mg PO DAILY Patient's Own Medication [Ptom] 0 each INH DAILY 03/09/19 13:38 DME for Inpatients [OM.PC] Routine 03/09/19 16:02 Patient Status [ADT] Routine 03/09/19 16:15 Pharmacy to Dose - Vancomycin 1 dose .XX ASDIRECTED 03/09/19 16:41 PROCALCITONIN [REF] Stat 03/09/19 17:00 Dronabinol [Marinol] 2.5 mg PO BID@1100,1700 03/09/19 21:00 Acetaminophen [Tylenol] 975 mg PO BEDTIME 03/10/19 05:44 BASIC METABOLIC PANEL,BMP [CHEM] AM CBC WITH AUTO DIFF [HEME] AM MAGNESIUM [CHEM] AM 03/11/19 05:11 BASIC METABOLIC PANEL,BMP [CHEM] AM CBC WITH AUTO DIFF [HEME] AM MAGNESIUM [CHEM] AM 03/12/19 05:11 BASIC METABOLIC PANEL,BMP [CHEM] AM CBC WITH AUTO DIFF [HEME] AM MAGNESIUM [CHEM] AM 03/13/19 05:11 BASIC METABOLIC PANEL,BMP [CHEM] AM CBC WITH AUTO DIFF [HEME] AM MAGNESIUM [CHEM] AM - Plan Plan:: Assessment: * 78 yo male with CLL, COPD, HLD, HTN, GERD, and BPH admitted to floor for possible PNA and failure to thrive * Currently living with daughter and her 2 children after moving here in end of January * Very thin, has reportedly had significant weight loss and lack of appetite * Was in an [facility] in [place] prior to coming here. Was at [facility] here until recently * Several excoriations on buttocks and groin * Several bruises throughout body * Chronically O2 dependant: 2L always; 3L with activity - currently at baseline * No signs of active cellulitis during physical exam * Was started on vancomycin and zosyn last night over sepsis concerns - this was ruled out and ABX stopped Plan: * Admit to hospital observation status -> upgraded to inpatient * PT/OT * Roll Threader Operator consult * CM/SW for discharge planning * Start Marinol BID for appetite * Routine AM labs * Repeat CXR: Stable lung markings; Linear densities appear to be fibrosis; Emphysematous change * No need for ABX today * VTE score of 5: unfortunately pharmacological prophylaxis is contraindicated due to low platelets and DAVE/SCDs contraindicated due to significant bruising and condition of skin * Old records obtained from [place] * O2 as needed * Back brace 2/2 lumbar compression fractures per PT. * AB/Pelvis CT today * [facility] [place] <Davina Urias T - Last Filed: 03/10/19 16:27> - Patient Data Vitals - Most Recent: Last Vital Signs Temp 36.9 C 03/10/19 14:37 Pulse 66 03/10/19 14:37 Resp 30 H 03/10/19 14:37 BP 109/54 L 03/10/19 14:37 Pulse Ox 94 L 03/10/19 14:37 I&O - Last 24 Hours: Intake & Output 03/10/19 03/10/19 03/10/19 06:59 14:59 22:59 Intake Total 400 400 Output Total 600 Balance -200 400 Lab Results Last 24 Hours: Laboratory Results - last 24 hr 03/09/19 03/09/19 03/09/19 Range/Units 16:41 16:41 16:41 WBC (4.23-9.07) K/mm3 RBC (4.63-6.08) M/mm3 Hgb (13.7-17.5) gm/L Hct (40.1-51.0) % MCV (79.0-92.2) fl MCH (25.7-32.2) pg MCHC (32.2-35.5) g/dl RDW Std Deviation (35.1-43.9) fL Plt Count (163-337) K/mm3 MPV (9.4-12.3) fl Neut % (Auto) (34.0-67.9) % Lymph % (Auto) (21.8-53.1) % [place] % (Auto) (5.3-12.2) % Eos % (Auto) (0.8-7.0) Baso % (Auto) (0.1-1.2) % Neut # (Auto) (1.78-5.38) K/mm3 Lymph # (Auto) (1.32-3.57) K/mm3 [place] # (Auto) (0.30-0.82) K/mm3 Eos # (Auto) (0.04-0.54) K/mm3 Baso # (Auto) (0.01-0.08) K/mm3 Manual Slide Review D-Dimer, Quantitative 2.28 H (0.19-0.50) mg/L Sodium (136-145) mEq/L Potassium (3.5-5.1) mEq/L Chloride (98-107) mEq/L Carbon Dioxide (21-32) mEq/L Anion Gap (5-15) BUN (7-18) mg/dL Creatinine (0.7-1.3) mg/dL Est Cr Clr Drug Dosing mL/min Estimated GFR (MDRD) (>60) mL/min BUN/Creatinine Ratio (14-18) Glucose (83-115) mg/dL Lactic Acid 0.9 (0.4-2.0) mmol/L Calcium (8.5-10.1) mg/dL Magnesium (1.8-2.4) mg/dl C-Reactive Protein 1.9 H* (<1.0) mg/dL 03/10/19 03/10/19 Range/Units 05:44 05:44 WBC 30.79 H (4.23-9.07) K/mm3 RBC 3.11 L (4.63-6.08) M/mm3 Hgb 9.3 L D (13.7-17.5) gm/L Hct 31.6 L (40.1-51.0) % MCV 101.6 H (79.0-92.2) fl MCH 29.9 (25.7-32.2) pg MCHC 29.4 L (32.2-35.5) g/dl RDW Std Deviation 49.1 H (35.1-43.9) fL Plt Count 70 L (163-337) K/mm3 MPV 10.1 (9.4-12.3) fl Neut % (Auto) 10.1 L (34.0-67.9) % Lymph % (Auto) 84.7 H (21.8-53.1) % [place] % (Auto) 3.0 L (5.3-12.2) % Eos % (Auto) 0.6 L (0.8-7.0) Baso % (Auto) 1.3 H (0.1-1.2) % Neut # (Auto) 3.12 (1.78-5.38) K/mm3 Lymph # (Auto) 26.08 H (1.32-3.57) K/mm3 [place] # (Auto) 0.91 H (0.30-0.82) K/mm3 Eos # (Auto) 0.18 (0.04-0.54) K/mm3 Baso # (Auto) 0.41 H (0.01-0.08) K/mm3 Manual Slide Review Abnormal smear D-Dimer, Quantitative (0.19-0.50) mg/L Sodium 143 (136-145) mEq/L Potassium 4.1 (3.5-5.1) mEq/L Chloride 104 (98-107) mEq/L Carbon Dioxide 33 H (21-32) mEq/L Anion Gap 10.1 (5-15) BUN 32 H (7-18) mg/dL Creatinine 1.1 (0.7-1.3) mg/dL Est Cr Clr Drug Dosing 48.78 mL/min Estimated GFR (MDRD) > 60 (>60) mL/min BUN/Creatinine Ratio 29.1 H (14-18) Glucose 88 (83-115) mg/dL Lactic Acid (0.4-2.0) mmol/L Calcium 8.3 L (8.5-10.1) mg/dL Magnesium 1.4 L (1.8-2.4) mg/dl C-Reactive Protein (<1.0) mg/dL Nathan Results Last 24 Hours: Microbiology 03/09/19 01:51 Aerobic Blood Culture - Preliminary Blood - Venous NO GROWTH AFTER 1 DAY Anaerobic Blood Culture - Preliminary NO GROWTH AFTER 1 DAY 03/09/19 01:59 Aerobic Blood Culture - Preliminary Blood - Venous - Lab Draw NO GROWTH AFTER 1 DAY Anaerobic Blood Culture - Preliminary NO GROWTH AFTER 1 DAY Med Orders - Current: Current Medications Acetaminophen (Tylenol) 500 mg PO BEDTIME PRN PRN Reason: Pain Acetaminophen (Tylenol) 975 mg PO BEDTIME [facility] Last Admin: 03/09/19 20:16 Dose: 975 mg Albuterol/Ipratropium (Duoneb 3.0-0.5 Mg/3 Ml) 3 ml INH Q4H PRN PRN Reason: Shortness of Breath Atenolol (Tenormin) 25 mg PO BID [facility] Last Admin: 03/10/19 08:45 Dose: 25 mg Bisacodyl (Dulcolax) 5 mg PO DAILY PRN PRN Reason: Constipation Docusate Sodium (Colace) 100 mg PO BID PRN PRN Reason: Constipation Dronabinol (Marinol) 2.5 mg PO BID@1100,1700 [facility] Last Admin: 03/10/19 16:12 Dose: 2.5 mg Ferrous Sulfate (Ferrous Sulfate) 325 mg PO BID [facility] Last Admin: 03/10/19 08:45 Dose: 325 mg Furosemide (Lasix) 80 mg PO DAILY [facility] Last Admin: 03/10/19 08:45 Dose: 80 mg Ondansetron HCl (Zofran) 4 mg IV Q6H PRN PRN Reason: Nausea/Vomiting Ondansetron HCl (Zofran Odt) 4 mg PO Q6H PRN PRN Reason: nausea, able to take PO Pantoprazole Sodium (Protonix) 40 mg PO BID [facility] Last Admin: 03/10/19 08:46 Dose: 40 mg Tiotropium 2.5 Mcg/ (Actuation Ptom) 0 each INH DAILY [facility] Last Admin: 03/10/19 09:03 Dose: 1 each Polyethylene Glycol (Miralax) 17 gm PO DAILY PRN PRN Reason: Constipation Senna/Docusate Sodium (Senna Plus) 1 tab PO BID PRN PRN Reason: Constipation Sodium Chloride (Saline Flush) 10 ml FLUSH ONETIME PRN PRN Reason: IV FLUSH Tamsulosin HCl (Flomax) 0.4 mg PO DAILY [facility] Last Admin: 03/10/19 08:46 Dose: 0.4 mg Tizanidine HCl (Zanaflex) 2 mg PO TID PRN PRN Reason: Muscle Spasm Discontinued Medications Albuterol/Ipratropium (Duoneb 3.0-0.5 Mg/3 Ml) 3 ml NEB Q4H PRN PRN Reason: Shortness Of Breath/wheezing Last Admin: 03/09/19 09:21 Dose: 3 ml Diatrizoate Meglum/Diatrizoate Sod (Gastrografin 37%) 120 ml PO ONETIME ONE Stop: 03/10/19 08:55 Last Admin: 03/10/19 09:56 Dose: 45 ml Doxycycline Hyclate (Vibramycin) 100 mg PO ONETIME ONE Stop: 03/09/19 00:09 Last Admin: 03/09/19 01:40 Dose: Not Given Doxycycline Hyclate (Vibramycin) 100 mg PO ONETIME ONE Stop: 03/09/19 02:01 Last Admin: 03/09/19 02:20 Dose: 100 mg Sodium Chloride (Sodium Chloride 0.45%) 1,000 mls @ 75 mls/hr IV ASDIRECTED [facility] Last Admin: 03/08/19 22:40 Dose: 75 mls/hr Ceftriaxone Sodium 2 gm/ (Sodium Chloride) 100 mls @ 200 mls/hr IV ONETIME ONE Stop: 03/09/19 00:35 Last Admin: 03/09/19 01:40 Dose: Not Given Ceftriaxone Sodium 2 gm/ (Sodium Chloride) 100 mls @ 200 mls/hr IV ONETIME ONE Stop: 03/09/19 02:29 Last Admin: 03/09/19 05:49 Dose: Not Given Ceftriaxone Sodium 2 gm/ (Sodium Chloride) 100 mls @ 200 mls/hr IV ONETIME ONE Stop: 03/09/19 02:44 Ceftriaxone Sodium 2 gm/ (Sodium Chloride) 100 mls @ 200 mls/hr IV ONETIME ONE Stop: 03/09/19 02:29 Last Admin: 03/09/19 02:18 Dose: 200 mls/hr Piperacillin Sod/Tazobactam (Sod 4.5 gm/ Sodium Chloride) 100 mls @ 100 mls/hr IV ONETIME ONE Stop: 03/09/19 17:14 Last Admin: 03/09/19 16:51 Dose: 100 mls/hr Piperacillin Sod/Tazobactam (Sod 4.5 gm/ Sodium Chloride) 100 mls @ 25 mls/hr IV Q8H [facility] Last Admin: 03/10/19 08:50 Dose: Not Given Vancomycin HCl 1.5 gm/ Sodium (Chloride) 500 mls @ 167 mls/hr IV ONETIME ONE Stop: 03/09/19 19:29 Last Admin: 03/09/19 18:34 Dose: Not Given Vancomycin HCl 1 gm/ Sodium (Chloride) 250 mls @ 250 mls/hr IV Q12H [facility] Last Admin: 03/10/19 07:51 Dose: 250 mls/hr Sodium Chloride (Normal Saline) 500 mls @ 999 mls/hr IV .BOLUS ONE Stop: 03/09/19 17:45 Last Admin: 03/09/19 17:26 Dose: 999 mls/hr Sodium Chloride (Normal Saline) 100 mls @ 3 mls/sec IV ASDIRECTED [facility] Last Admin: 03/09/19 18:20 Dose: 3 mls/sec Vancomycin HCl 1.5 gm/ Sodium (Chloride) 500 mls @ 167 mls/hr IV ONETIME ONE Stop: 03/09/19 21:29 Last Admin: 03/09/19 18:34 Dose: 167 mls/hr Magnesium Sulfate 4 gm/ Premix 50 mls @ 12.5 mls/hr IV ONETIME ONE Stop: 03/10/19 11:29 Last Admin: 03/10/19 10:12 Dose: 12.5 mls/hr Iopamidol (Isovue-370 (76%)) 100 ml IVPUSH ONETIME ONE Stop: 03/09/19 17:24 Last Admin: 03/09/19 18:20 Dose: 100 ml Iopamidol (Isovue-300 (61%)) 100 ml IVPUSH ONETIME ONE Stop: 03/10/19 08:55 Last Admin: 03/10/19 09:56 Dose: 100 ml Non-Formulary Medication (Budesonide [Budesonide]) 2 puff INH BID [facility] Oxycodone/Acetaminophen (Percocet 325-5 Mg) 1 tab PO BID PRN PRN Reason: Pain Atenolol 25 Mg (Ptom) 0 each PO BID [facility] Last Admin: 03/09/19 10:37 Dose: 1 each Pantoprazole Sodium (40 Mg Ptom) 0 each PO BID [facility] Last Admin: 03/09/19 10:38 Dose: 1 each Tamsulosin Hcl 0.4 (Mg Ptom) 0 each PO DAILY [facility] Last Admin: 03/09/19 10:39 Dose: 1 each Tizanidine Hcl 2 Mg (Ptom) 0 each PO TID [facility] Last Admin: 03/09/19 13:58 Dose: Not Given Albuterol/Ipratropium 3.0-0.5 Mg/3 Ml Neb Soln Ptom 0 each NEB Q4H PRN PRN Reason: Shortness Of Breath/wheezing Last Admin: 03/09/19 16:25 Dose: 3 each Tizanidine Hcl 2 Mg (Ptom) 0 each PO TID PRN PRN Reason: Muscle Spasm Sodium Chloride (Saline Flush) 10 ml FLUSH ASDIRECTED [facility] Last Admin: 03/09/19 18:20 Dose: 10 ml Vancomycin HCl (Pharmacy To Dose - Vancomycin) 0 dose .XX ASDIRECTED PRN PRN Reason: RX TO DOSE VANCO - Problem List & Annotations (1) Lymphoma SNOMED Code(s): 229086002 Code(s): C85.90 - NON-HODGKIN LYMPHOMA, UNSPECIFIED, UNSPECIFIED SITE Status: Acute Current Visit: Yes Qualifiers: Lymphoma type: unspecified type Lymphoma site: intrathoracic nodes Qualified Code(s): C85.92 - Non-Hodgkin lymphoma, unspecified, intrathoracic lymph nodes (2) Compression fracture SNOMED Code(s): 691608761 Code(s): [id number] - Status: Acute Current Visit: Yes (3) Failure to thrive SNOMED Code(s): 52112634 Code(s): [id number] - Status: Acute Priority: High Current Visit: Yes Qualifiers: Failure to thrive age range: in adult Qualified Code(s): R62.7 - Adult failure to thrive (4) Hospital admission due to social situation SNOMED Code(s): 727314876 Code(s): Z60.9 - PROBLEM RELATED TO SOCIAL ENVIRONMENT, UNSPECIFIED Status : Acute Priority: High Current Visit: Yes (5) CLL (chronic lymphocytic leukemia) SNOMED Code(s): 77648785 Code(s): C91.90 - LYMPHOID LEUKEMIA, UNSPECIFIED NOT HAVING ACHIEVED REMISSION Status: Chronic Priority: High Current Visit: Yes (6) Status post fall SNOMED Code(s): 268704389 Code(s): Z91.81 - HISTORY OF FALLING Status: Acute Current Visit: Yes - Problem List Review Problem List Initiated/Reviewed/Updated: Yes - My Orders Last 24 Hours: My Active Orders 03/09/19 18:55 Albuterol/Ipratropium [DuoNeb 3.0-0.5 MG/3 ML] 3 ml INH Q4H PRN 03/09/19 19:06 tiZANidine [Zanaflex] 2 mg PO TID PRN 03/09/19 21:00 Atenolol [Tenormin] 25 mg PO BID Pantoprazole [ProTONIX] 40 mg PO BID 03/10/19 08:54 Sodium Chloride 0.9% [Saline Flush] 10 ml FLUSH ONETIME PRN 03/10/19 09:00 Tamsulosin [Flomax] 0.4 mg PO DAILY 03/10/19 14:34 Patient Status [ADT] Routine 03/10/19 16:04 Ready for Discharge [RC] PER UNIT ROUTINE - Plan Plan:: Met up with family and his sister via tele-conversation; [facility] [place] [facility]. His family all decided for him to head east in [place] pending bed availability.
[2019-03-10] MEDS ORDERED: Magnesium Sulfate/Water 4 GM in Premix Bag 1 BAG IV ONE (07:30)
[2019-03-10] MEDS: Furosemide 80 MG Tab PO SCH (08:45)
[2019-03-10] MEDS: Atenolol 25 MG Tab PO SCH (08:45)
[2019-03-10] MEDS: Ferrous Sulfate 325 MG Tab PO SCH (08:45)
[2019-03-10] MEDS: Pantoprazole 40 MG Tab.CR PO SCH (08:46)
--- NOTE | 2019-03-10 08:47 | CT ---
CT chest Technique: Multiple axial sections through the chest were obtained. Intravenous contrast was utilized. Study has been performed as a pulmonary angiogram protocol. Comparison: No prior chest CT, previous chest x-ray of 03/09/19. Prominent adenopathy seen within the mediastinum as well as within both axillary regions. There is also soft tissue material in the area of the spleen which surrounds the celiac axis, uncertain how much of this could represent pancreatic disease versus adenopathy. Spleen is incompletely seen but appears to be enlarged. Minimal right sided pleural effusion is seen. Focal parenchymal density noted within the right lung base. This is adjacent to the posterior chest. Nodular parenchymal change noted within both lung bases. Diffuse emphysematous change is seen. Aorta shows atherosclerotic calcification without aneurysm. Coronary artery calcification is seen. Pulmonary arteries show no filling defects within the main or segmental branches. Smaller subsegmental pulmonary emboli could be missed. Bone window settings show scattered degenerative change within the spine. No acute osseous abnormality is appreciated. Impression: 1. Emphysematous change. Parenchymal densities most likely representing nodular areas of scarring and fibrosis. Follow-up chest CT could be considered in 6 months to confirm stability. 2. Mediastinal and axillary adenopathy as well as soft tissue material surrounding the celiac axis and the area of the pancreas. Uncertain how much of this is due to pancreatic mass versus adenopathy. In addition there appears to be splenomegaly. Formal CT abdomen and pelvis exam could be considered. 3. No evidence of pulmonary embolism within the main or segmental branches. Diagnostic code #9 I agree with preliminary report issued by [facility] ([facility] report finalized on 03/09/19, 8:19 PM Central Time.)
[2019-03-10] MEDS ORDERED: Iopamidol 612 MG/ML 100 ML Bottle IVPUSH ONE (08:54)
[2019-03-10] MEDS ORDERED: Sodium Chloride 0.9% 10 ML Syringe FLUSH PRN (08:54)
[2019-03-10] MEDS ORDERED: Diatrizoate Meglumine/Diatrizoate Sodium 37% 120 ML Bottle PO ONE (08:54)
[2019-03-10] MEDS ORDERED: Tamsulosin 0.4 MG Cap.ER PO SCH (09:00)
[2019-03-10] MEDS: TIOTROPIUM INH SCH (09:03)
--- NOTE | 2019-03-10 10:50 | CT ---
CT abdomen and pelvis (without and with intravenous contrast) Findings: Noncontrast imaging initially obtained from above the dome of the diaphragm inferiorly to the iliac crests. Intravenous contrast was obtained in the arterial phase to the iliac crests. Portal phase imaging then obtained from above the dome of the diaphragm inferiorly through the pubic symphysis. Reconstructed coronal and sagittal images were reviewed. Findings: Spleen is enlarged measuring 14.6 cm in length. Small amount of air is seen which is most likely biliary in location presumably due to previous intervention at the sphincter of Salo. Liver shows no focal parenchymal abnormality. On the arterial phase the pancreas is felt to be visualized. Diffuse soft tissue density is seen surrounding the pancreas which is felt compatible with diffuse adenopathy which displaces the pancreas anteriorly. Adenopathy continues into the mesentery with adenopathy continuing within the mesentery into the pelvis. Inguinal adenopathy is also seen. Delayed images show contrast excretion from both kidneys. Cyst is noted within the upper left kidney measuring 1.4 cm. Delayed images show contrast within the ureters and bladder. Several small bladder diverticuli are seen. Bladder is also irregular most likely due to trabeculation from an element of bladder outlet obstruction. Aorta shows atherosclerotic calcification which continues into the iliac vessels without aneurysm. Appendix not seen with certainty. Bone window settings were reviewed which show compression deformities within L1 and L2. L1 compression deformity may be fairly acute as there does appear to be a fracture line. L2 compression deformity is most likely old. Impression: 1. Extensive retroperitoneal and mesenteric adenopathy as well as additional adenopathy within the inguinal regions. 2. Adenopathy surrounds the pancreas with no discrete pancreatic mass being seen. 3. Compression fractures superiorly within L1 which likely are fairly acute as there are lucent fracture lines being seen. More severe compression deformity at L2 is likely old as no fracture lines are seen. 4. Splenomegaly. 5. Small amount of air within the liver which is most likely due to previous intervention at the sphincter of Salo. 6. Other findings felt to be incidental as noted above. Note: Adenopathy most likely due to lymphoma. Diagnostic code #9 [employer]orter P[employer]er called report to Hipolito Liang at 10:34 on 03/10/2019
[2019-03-10] MEDS: Dronabinol 2.5 MG Cap PO SCH ×2 (11:03→16:12)
--- NOTE | 2019-03-10 16:32 | PCM.DCSUM1 ---
Discharge Summary - Hospital Course Brief History: Rafy Palacio is a 78-year-old male who presents to our ED on 03/08 with weight loss and failure to thrive. Patient's daughter reports she was trying to have the patient establish with a primary care provider locally. He was being seen by Alda Hauser PA-C, who sent the patient down to the emergency room. He reportedly is also trying to establish with Dr. Guzman but that appointment is not for several weeks. The patient had reportedly recently moved here from [place], arriving on February 22. She was reportedly laced in assisted living however shortly after being admitted he was "infected" due to the arm wound growing out resistant Klebsiella pneumoniae ESBL/Kpc and enterococcus faecalis. He does carry history of COPD and CLL. He also was recently diagnosed with compression fractures in his back. This was noted on MRI showing acute fairly acute endplate fractures at L1 and L3 along with the old compression fracture at L2. Patient reports he lost quite a bit of weight and he is not being fed very much. His reportedly in assisted living in [place] and was doing much better. He's been living with his daughter who has been attempting to make things he'll eat but she states he just isn't eating much. He's lost well over 10 pounds since he's been here. He is oxygen dependent due to COPD with 2 L at all times and 3 L with activity. In the ED temperature 36.4 Celsius. Pulse 72. Respirations 16. Blood pressure 138/45. Pulse ox 90%. Labs are obtained showing a WBC of 35.51. Hemoglobin 11.0. Hematocrit 37.0. He is macrocytic. Platelets are low at 75,000. Neutrophils are low at 11%. There is 2% bandemia. PT is 10.3. INR 0.94. Sodium is 143. Potassium is high at 5.2. Chloride is 104. Carbon monoxide is high at 37. Anion gap is 7.2. BUN is high at 47. Creatinine is 1.1. EGFR greater than 60. Glucose is 100. Calcium 9.0. Total bilirubin 0.7. AST is 9, ALT 12, alkaline phosphatase 94. Protein is good at 6.6. Albumin is low at 3.0. UA is negative however one plus occult blood 1+ bilirubin, and 5-10 squamous epithelial cells are noted. Twelve-lead EKG is obtained showing sinus rhythm at 52 bpm with a right bundle branch block. He started on NS at 75 mils an hour. 2 view chest x-rays obtained and there is a questionable infiltrate noted in the retrocardiac region. This was later over read by Dr. Huffman who noted "1. Emphysematous change. 2. Presumed scarring within the right middle lobe. No definite acute parenchymal changes definitively seen. If patient continues to be symptomatic, follow-up study could be considered to confirm stability of the chest x-ray.". He carries a history of allergic rhinitis, HLD , hypertension, COPD, GERD, BPH, CLL. He is a former smoker. He was subsequently admitted for failure to thrive and acute back pain stasus post fall. Diagnosis: Stroke: No Modified Gentry Scale: No Symptoms at All Modified Richgrove Scale Score: 0 - Discharge Data Discharge Date: 03/10/19 Discharge Disposition: DC/Tfer to Other 70 Condition: Good - Discharge Diagnosis/Problem(s) (1) Lymphoma SNOMED Code(s): 381746243 ICD Code: C85.90 - NON-HODGKIN LYMPHOMA, UNSPECIFIED, UNSPECIFIED SITE Status: Acute Qualifiers: Lymphoma type: unspecified type Lymphoma site: intrathoracic nodes Qualified Code(s): C85.92 - Non-Hodgkin lymphoma, unspecified, intrathoracic lymph nodes (2) Compression fracture SNOMED Code(s): 242114798 ICD Code: [id number] - Status: Acute (3) Failure to thrive SNOMED Code(s): 04536521 ICD Code: [id number] - Status: Acute Priority: High Qualifiers: Failure to thrive age range: in adult Qualified Code(s): R62.7 - Adult failure to thrive (4) Hospital admission due to social situation SNOMED Code(s): 479574994 ICD Code: Z60.9 - PROBLEM RELATED TO SOCIAL ENVIRONMENT, UNSPECIFIED Status : Acute Priority: High (5) CLL (chronic lymphocytic leukemia) SNOMED Code(s): 93165538 ICD Code: C91.90 - LYMPHOID LEUKEMIA, UNSPECIFIED NOT HAVING ACHIEVED REMISSION Status: Chronic Priority: High (6) Status post fall SNOMED Code(s): 424112849 ICD Code: Z91.81 - HISTORY OF FALLING Status: Acute - Patient Summary/Data Operative Procedure(s) Performed: None Complications: None Consults: Consultations 03/09/19 00:25 Consult to Physical Therapy [PT Evaluation and Treatment] [CONS] Routine 03/09/19 00:26 Consult to State Trooper [CONS] Routine 03/09/19 07:45 Consult to Case Management/[employer] Parker [CONS] Routine Consult to Spiritual Care [CONS] Routine OT Evaluation and Treatment [CONS] Routine Labs Pending at D/C: None Recommended Follow-up Testing/Procedures: None Planned Operative Procedure(s) after DC: None Hospital Course: Patient was primarily admitted for failure to thrive and status post fall. All his basic work up were negative but his CT scan revealed diffuse adenopathy and lymphoma along with an L1 acute lumbar compression fracture. He has family but could not rely on their services to help him with his activities of daily living. He was initially residing at an assisted living but was dismissed from the facility after he was screened for super bugs. Our plan was [facility] placement but he has already been rejected by 2 facilities. However we tried the [place], in [place] and they readily accepted him for further treatment and evaluation. Patient left here via ambulance and he was admitted under the services of Dr. Espinoza, hospitalist attending. - Patient Instructions Diet: Usual Diet as Tolerated Activity: As Tolerated Driving: Do Not Drive Showering/Bathing: May Shower Notify Provider of: Fever, Increased Pain, Swelling and Redness, Drainage, Nausea and/or Vomiting Other/Special Instructions: - Follow up with PCP after discharge from the [facility] - Discharge Plan *PRESCRIPTION DRUG MONITORING PROGRAM REVIEWED*: No *COPY OF PRESCRIPTION DRUG MONITORING REPORT IN PATIENT [place]: No Home Medications: Home Meds Acetaminophen 1,000 mg PO BEDTIME 03/08/19 [History] Albuterol Sulfate 1 puff INH Q6HR 03/08/19 [History] Atenolol 25 mg PO BID 03/08/19 [History] Budesonide 2 puff INH BID 03/08/19 [History] Ferrous Sulfate 325 mg PO BID 03/08/19 [History] Furosemide 40 mg PO DAILY 03/08/19 [History] Pantoprazole Sodium 40 mg PO BID 03/08/19 [History] Potassium Chloride 20 meq PO DAILY 03/08/19 [History] Tamsulosin HCl 0.4 mg PO DAILY 03/08/19 [History] Tiotropium [Spiriva] 18 mcg INH DAILY 03/08/19 [History] tiZANidine HCl [Tizanidine HCl] 2 mg PO TID PRN 03/08/19 [History] Oxygen Therapy Mode: Room Air Patient Handouts: ESBL Infection Information, Preventing MDRO Infections Referrals: Alda Hauser PA-C [Primary Care Provider] - - Discharge Summary/Plan Comment DC Time >30 min.: Yes (45 mins) Discharge Summary/Plan Comment: Discharge to [facility] under the services of Dr. Espinoza, Hospitalist - General Info Date of Service: 03/10/19 Admission Dx/Problem (Free Text: Admission Diagnosis/Problem Admission Diagnosis/Problem Failure to thrive in adult Subjective Update: Follow Up Functional Status: Reports: Pain Controlled, Tolerating Diet, Urinating. Denies : New Symptoms - Review of Systems General: Reports: Weakness, Fatigue, Malaise. Denies: Fever, Chills HEENT: Reports: No Symptoms Pulmonary: Reports: Shortness of Breath (chronically). Denies: Cough, Sputum Cardiovascular: Denies: Chest Pain Gastrointestinal: Denies: Abdominal Pain, Nausea, Vomiting Genitourinary: Reports: No Symptoms Musculoskeletal: Reports: Back Pain Skin: Reports: Bruising. Denies: Cyanosis, Pallor, Diaphoresis, Other (skin lesions) Neurological: Reports: Difficulty Walking, Weakness, Gait Disturbance. Denies: Confusion, Dizziness Psychiatric: Denies: Depression, Anxiety, Agitation, Hallucinations - Patient Data Vitals - Most Recent: Last Vital Signs Temp 36.9 C 03/10/19 14:37 Pulse 66 03/10/19 14:37 Resp 30 H 03/10/19 14:37 BP 109/54 L 03/10/19 14:37 Pulse Ox 94 L 03/10/19 14:37 Weight - Most Recent: 61.326 kg I&O - Last 24 hours: Intake & Output 03/10/19 03/10/19 03/10/19 06:59 14:59 22:59 Intake Total 400 400 Output Total 600 Balance -200 400 Lab Results - Last 24 hrs: Laboratory Results - last 24 hr 03/09/19 03/09/19 03/09/19 Range/Units 16:41 16:41 16:41 WBC (4.23-9.07) K/mm3 RBC (4.63-6.08) M/mm3 Hgb (13.7-17.5) gm/L Hct (40.1-51.0) % MCV (79.0-92.2) fl MCH (25.7-32.2) pg MCHC (32.2-35.5) g/dl RDW Std Deviation (35.1-43.9) fL Plt Count (163-337) K/mm3 MPV (9.4-12.3) fl Neut % (Auto) (34.0-67.9) % Lymph % (Auto) (21.8-53.1) % Crenshaw % (Auto) (5.3-12.2) % Eos % (Auto) (0.8-7.0) Baso % (Auto) (0.1-1.2) % Neut # (Auto) (1.78-5.38) K/mm3 Lymph # (Auto) (1.32-3.57) K/mm3 Crenshaw # (Auto) (0.30-0.82) K/mm3 Eos # (Auto) (0.04-0.54) K/mm3 Baso # (Auto) (0.01-0.08) K/mm3 Manual Slide Review D-Dimer, Quantitative 2.28 H (0.19-0.50) mg/L Sodium (136-145) mEq/L Potassium (3.5-5.1) mEq/L Chloride (98-107) mEq/L Carbon Dioxide (21-32) mEq/L Anion Gap (5-15) BUN (7-18) mg/dL Creatinine (0.7-1.3) mg/dL Est Cr Clr Drug Dosing mL/min Estimated GFR (MDRD) (>60) mL/min BUN/Creatinine Ratio (14-18) Glucose (83-115) mg/dL Lactic Acid 0.9 (0.4-2.0) mmol/L Calcium (8.5-10.1) mg/dL Magnesium (1.8-2.4) mg/dl C-Reactive Protein 1.9 H* (<1.0) mg/dL 03/10/19 03/10/19 Range/Units 05:44 05:44 WBC 30.79 H (4.23-9.07) K/mm3 RBC 3.11 L (4.63-6.08) M/mm3 Hgb 9.3 L D (13.7-17.5) gm/L Hct 31.6 L (40.1-51.0) % MCV 101.6 H (79.0-92.2) fl MCH 29.9 (25.7-32.2) pg MCHC 29.4 L (32.2-35.5) g/dl RDW Std Deviation 49.1 H (35.1-43.9) fL Plt Count 70 L (163-337) K/mm3 MPV 10.1 (9.4-12.3) fl Neut % (Auto) 10.1 L (34.0-67.9) % Lymph % (Auto) 84.7 H (21.8-53.1) % Crenshaw % (Auto) 3.0 L (5.3-12.2) % Eos % (Auto) 0.6 L (0.8-7.0) Baso % (Auto) 1.3 H (0.1-1.2) % Neut # (Auto) 3.12 (1.78-5.38) K/mm3 Lymph # (Auto) 26.08 H (1.32-3.57) K/mm3 Crenshaw # (Auto) 0.91 H (0.30-0.82) K/mm3 Eos # (Auto) 0.18 (0.04-0.54) K/mm3 Baso # (Auto) 0.41 H (0.01-0.08) K/mm3 Manual Slide Review Abnormal smear D-Dimer, Quantitative (0.19-0.50) mg/L Sodium 143 (136-145) mEq/L Potassium 4.1 (3.5-5.1) mEq/L Chloride 104 (98-107) mEq/L Carbon Dioxide 33 H (21-32) mEq/L Anion Gap 10.1 (5-15) BUN 32 H (7-18) mg/dL Creatinine 1.1 (0.7-1.3) mg/dL Est Cr Clr Drug Dosing 48.78 mL/min Estimated GFR (MDRD) > 60 (>60) mL/min BUN/Creatinine Ratio 29.1 H (14-18) Glucose 88 (83-115) mg/dL Lactic Acid (0.4-2.0) mmol/L Calcium 8.3 L (8.5-10.1) mg/dL Magnesium 1.4 L (1.8-2.4) mg/dl C-Reactive Protein (<1.0) mg/dL YOLY Results - Last 24 hrs: Microbiology 03/09/19 01:51 Aerobic Blood Culture - Preliminary Blood - Venous NO GROWTH AFTER 1 DAY Anaerobic Blood Culture - Preliminary NO GROWTH AFTER 1 DAY 03/09/19 01:59 Aerobic Blood Culture - Preliminary Blood - Venous - Lab Draw NO GROWTH AFTER 1 DAY Anaerobic Blood Culture - Preliminary NO GROWTH AFTER 1 DAY Med Orders - Current: Current Medications Acetaminophen (Tylenol) 500 mg PO BEDTIME PRN PRN Reason: Pain Acetaminophen (Tylenol) 975 mg PO BEDTIME [facility] Last Admin: 03/09/19 20:16 Dose: 975 mg Albuterol/Ipratropium (Duoneb 3.0-0.5 Mg/3 Ml) 3 ml INH Q4H PRN PRN Reason: Shortness of Breath Atenolol (Tenormin) 25 mg PO BID [facility] Last Admin: 03/10/19 08:45 Dose: 25 mg Bisacodyl (Dulcolax) 5 mg PO DAILY PRN PRN Reason: Constipation Docusate Sodium (Colace) 100 mg PO BID PRN PRN Reason: Constipation Dronabinol (Marinol) 2.5 mg PO BID@1100,1700 [facility] Last Admin: 03/10/19 16:12 Dose: 2.5 mg Ferrous Sulfate (Ferrous Sulfate) 325 mg PO BID [facility] Last Admin: 03/10/19 08:45 Dose: 325 mg Furosemide (Lasix) 80 mg PO DAILY [facility] Last Admin: 03/10/19 08:45 Dose: 80 mg Ondansetron HCl (Zofran) 4 mg IV Q6H PRN PRN Reason: Nausea/Vomiting Ondansetron HCl (Zofran Odt) 4 mg PO Q6H PRN PRN Reason: nausea, able to take PO Pantoprazole Sodium (Protonix) 40 mg PO BID [facility] Last Admin: 03/10/19 08:46 Dose: 40 mg Tiotropium 2.5 Mcg/ (Actuation Ptom) 0 each INH DAILY [facility] Last Admin: 03/10/19 09:03 Dose: 1 each Polyethylene Glycol (Miralax) 17 gm PO DAILY PRN PRN Reason: Constipation Senna/Docusate Sodium (Senna Plus) 1 tab PO BID PRN PRN Reason: Constipation Sodium Chloride (Saline Flush) 10 ml FLUSH ONETIME PRN PRN Reason: IV FLUSH Tamsulosin HCl (Flomax) 0.4 mg PO DAILY [facility] Last Admin: 03/10/19 08:46 Dose: 0.4 mg Tizanidine HCl (Zanaflex) 2 mg PO TID PRN PRN Reason: Muscle Spasm Discontinued Medications Albuterol/Ipratropium (Duoneb 3.0-0.5 Mg/3 Ml) 3 ml NEB Q4H PRN PRN Reason: Shortness Of Breath/wheezing Last Admin: 03/09/19 09:21 Dose: 3 ml Diatrizoate Meglum/Diatrizoate Sod (Gastrografin 37%) 120 ml PO ONETIME ONE Stop: 03/10/19 08:55 Last Admin: 03/10/19 09:56 Dose: 45 ml Doxycycline Hyclate (Vibramycin) 100 mg PO ONETIME ONE Stop: 03/09/19 00:09 Last Admin: 03/09/19 01:40 Dose: Not Given Doxycycline Hyclate (Vibramycin) 100 mg PO ONETIME ONE Stop: 03/09/19 02:01 Last Admin: 03/09/19 02:20 Dose: 100 mg Sodium Chloride (Sodium Chloride 0.45%) 1,000 mls [facility] Admin: 03/08/19 22:40 Dose: 75 mls/hr Ceftriaxone Sodium 2 gm/ (Sodium Chloride) 100 mls @ 200 mls/hr IV ONETIME ONE Stop: 03/09/19 00:35 Last Admin: 03/09/19 01:40 Dose: Not Given Ceftriaxone Sodium 2 gm/ (Sodium Chloride) 100 mls @ 200 mls/hr IV ONETIME ONE Stop: 03/09/19 02:29 Last Admin: 03/09/19 05:49 Dose: Not Given Ceftriaxone Sodium 2 gm/ (Sodium Chloride) 100 mls @ 200 mls/hr IV ONETIME ONE Stop: 03/09/19 02:44 Ceftriaxone Sodium 2 gm/ (Sodium Chloride) 100 mls @ 200 mls/hr IV ONETIME ONE Stop: 03/09/19 02:29 Last Admin: 03/09/19 02:18 Dose: 200 mls/hr Piperacillin Sod/Tazobactam (Sod 4.5 gm/ Sodium Chloride) 100 mls @ 100 mls/hr IV ONETIME ONE Stop: 03/09/19 17:14 Last Admin: 03/09/19 16:51 Dose: 100 mls/hr Piperacillin Sod/Tazobactam (Sod 4.5 gm/ Sodium Chloride) 100 mls @ 25 mls/hr IV Q8H [facility] Last Admin: 03/10/19 08:50 Dose: Not Given Vancomycin HCl 1.5 gm/ Sodium (Chloride) 500 mls @ 167 mls/hr IV ONETIME ONE Stop: 03/09/19 19:29 Last Admin: 03/09/19 18:34 Dose: Not Given Vancomycin HCl 1 gm/ Sodium (Chloride) 250 mls @ 250 mls/hr IV Q12H [facility] Last Admin: 03/10/19 07:51 Dose: 250 mls/hr Sodium Chloride (Normal Saline) 500 mls @ 999 mls/hr IV .BOLUS ONE Stop: 03/09/19 17:45 Last Admin: 03/09/19 17:26 Dose: 999 mls/hr Sodium Chloride (Normal Saline) 100 mls @ 3 mls/sec IV ASDIRECTED [facility] Last Admin: 03/09/19 18:20 Dose: 3 mls/sec Vancomycin HCl 1.5 gm/ Sodium (Chloride) 500 mls @ 167 mls/hr IV ONETIME ONE Stop: 03/09/19 21:29 Last Admin: 03/09/19 18:34 Dose: 167 mls/hr Magnesium Sulfate 4 gm/ Premix 50 mls @ 12.5 mls/hr IV ONETIME ONE Stop: 03/10/19 11:29 Last Admin: 03/10/19 10:12 Dose: 12.5 mls/hr Iopamidol (Isovue-370 (76%)) 100 ml IVPUSH ONETIME ONE Stop: 03/09/19 17:24 Last Admin: 03/09/19 18:20 Dose: 100 ml Iopamidol (Isovue-300 (61%)) 100 ml IVPUSH ONETIME ONE Stop: 03/10/19 08:55 Last Admin: 03/10/19 09:56 Dose: 100 ml Non-Formulary Medication (Budesonide [Budesonide]) 2 puff INH BID [facility] Oxycodone/Acetaminophen (Percocet 325-5 Mg) 1 tab PO BID PRN PRN Reason: Pain Atenolol 25 Mg (Ptom) 0 each PO BID [facility] Last Admin: 03/09/19 10:37 Dose: 1 each Pantoprazole Sodium (40 Mg Ptom) 0 each PO BID [facility] Last Admin: 03/09/19 10:38 Dose: 1 each Tamsulosin Hcl 0.4 (Mg Ptom) 0 each PO DAILY [facility] Last Admin: 03/09/19 10:39 Dose: 1 each Tizanidine Hcl 2 Mg (Ptom) 0 each PO TID [facility] Last Admin: 03/09/19 13:58 Dose: Not Given Albuterol/Ipratropium 3.0-0.5 Mg/3 Ml Neb Soln Ptom 0 each NEB Q4H PRN PRN Reason: Shortness Of Breath/wheezing Last Admin: 03/09/19 16:25 Dose: 3 each Tizanidine Hcl 2 Mg (Ptom) 0 each PO TID PRN PRN Reason: Muscle Spasm Sodium Chloride (Saline Flush) 10 ml FLUSH ASDIRECTED [facility] Last Admin: 03/09/19 18:20 Dose: 10 ml Vancomycin HCl (Pharmacy To Dose - Vancomycin) 0 dose .XX ASDIRECTED PRN PRN Reason: RX TO DOSE VANCO - Exam Quality Assessment: Reports: Supplemental Oxygen General: Reports: Alert, Oriented, Cooperative, No Acute Distress, Other ( cachectic) HEENT: Reports: Pupils Equal, Pupils Reactive, EOMI, Mucous Membr. Moist/Boles Neck: Reports: Supple Lungs: Reports: Normal Respiratory Effort, Decreased Breath Sounds Cardiovascular: Reports: Regular Rate, Regular Rhythm GI/Abdominal Exam: Normal Bowel Sounds, Soft, Non-Tender, No Organomegaly, No Distention, No Abnormal Bruit (Male) Exam: Deferred Rectal (Males) Exam: Deferred Back Exam: Reports: Normal Inspection, Decreased Range of Motion Extremities: Normal Inspection, Normal Range of Motion, Non-Tender, No Pedal Edema, Normal Capillary Refill Skin: Reports: Warm, Dry, Ecchymosis, Other (excoriations all over) Neurological: Reports: No New Focal Deficit, Normal Gait Psy/Mental Status: Reports: Alert, Normal Affect, Normal Mood
[2019-03-10] MEDS: BUDESONIDE INH SCH ×2 (20:29→20:30)
== END 2019-03-10 17:12 | disposition other institution (70) | DRG 841 ==
LOC: JD.ED 18:19 → JD.MS 23:34 → OBSVTOIN 03-09 16:09
PROVIDERS: ADMIT Internal Medicine; ATTEND Internal Medicine
DX: C85.92 Non-Hodgkin lymphoma, unspecified, intrathoracic lymph nodes (principal); Z68.1 Body mass index [BMI] 19.9 or less, adult; M48.56XA Collapsed vertebra, not elsewhere classified, lumbar region, initial encounter for fracture; C91.10 Chronic lymphocytic leukemia of B-cell type not having achieved remission; R62.7 Adult failure to thrive; J44.9 Chronic obstructive pulmonary disease, unspecified; J30.9 Allergic rhinitis, unspecified; I10 Essential (primary) hypertension; K21.9 Gastro-esophageal reflux disease without esophagitis; E78.00 Pure hypercholesterolemia, unspecified; I11.0 Hypertensive heart disease with heart failure; I50.9 Heart failure, unspecified; G89.29 Other chronic pain; M54.2 Cervicalgia; Z90.49 Acquired absence of other specified parts of digestive tract; Z98.1 Arthrodesis status; N40.0 Benign prostatic hyperplasia without lower urinary tract symptoms; Z91.81 History of falling; Z60.9 Problem related to social environment, unspecified; E78.5 Hyperlipidemia, unspecified; M54.5 Low back pain; Z87.891 Personal history of nicotine dependence; Z99.81 Dependence on supplemental oxygen; Z79.899 Other long term (current) drug therapy; Z66 Do not resuscitate
CPT/HCPCS: 36415 ×2; 71046 ×2; 80048; 80053; 81001; 85007; 85027; 85610; 87040 ×2; 93005; 94640; 96361 ×2; 96365; 97110; 97116 ×2; 97161; 97166; 97530 ×2; 99285; A9270 ×2; G0378 ×2; J0696; J7030 ×2; 71275; 71275-26; 74178; 74178-26; 83605; 83735; 84145; 85025; 85379; 86140; 93010; 94760; 96360; 99283; J2543; J3370; J3475; J7040; J7050; J7620-GY; Q0167; Q9963; Q9967

== ENCOUNTER 2019-04-11 12:01 | Emergency (ER) | payer MEDICARE, OTHER ==
--- NOTE | 2019-04-11 12:33 | EDM.PDOC ---
ED HPI GENERAL MEDICAL PROBLEM - General Chief Complaint: Neurological Problem Stated Complaint: [facility] Time Seen by Provider: 04/11/19 12:24 Source of Information: Reports: Patient, Family (son) History Limitations: Reports: No Limitations - History of Present Illness INITIAL COMMENTS - FREE TEXT/NARRATIVE: 78-year-old male presents to the ED by [facility]. The history suggests that his son witnessed him having a seizure at home. Patient was sitting on the couch and talking with his son when all of a sudden he developed a blank stare in his face. Ice seemed to stare and be fixated. He was not responding to verbal communication. Son states that he started to drool and moan. He then did develop some tonic-clonic activity most notable in his upper extremities that lasted about 30 seconds. Went to call 911 within a few seconds of recognizing that his father was not responding verbally. Paramedics arrived they found that he was a phasic but denied having any pain. He could lift both arms were 2 people to walk him down the [place] to the [facility]. Around with a walker on his own volition. It appears that he was postictal for about 10-15 minutes. Patient has never had a seizure before. He became able to speak en route to the hospital in the ambulance and made sense. She at this time denies nausea vomiting or headache. 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 No past history of seizures. Patient has been in declining level of health for several months. His family brought him up from [place] where he was residing about 2 months ago. Is currently receiving a daily treatment with chemotherapy agent. Patient fell about 3 months ago and suffered compression fractures in his lower back. Apparently has compression fractures of 1 and 5 and 2 is an older compression fracture. These causing some degree of pain. He sleeps primarily and rests a great deal in the easy chair. He states he doesn't have a normal on it and makes it very difficult for him to get up and he equates a lot of his bruising in his lower extremities to fighting to get up from the easy chair. No recent falls or closed head injuries. Onset: Today Onset Date: 04/11/19 Onset Time: 11:23 Duration: Minutes: Location: Reports: Generalized (Suffered a grand mal convulsion by history with tonic-clonic movements of his upper extremities initially staring off into space with morning groaning and drooling. Is likely recovered completely but it was a rather prolonged a phasic days. Recovered over about 10-15 minutes a postictal. Patient is in chronic poor health due to chronic lymphocytic leukemia. He is on numerous medications. Does feel warm to palpation to me.) Quality: Reports: Other Severity: Moderate (Patient has no recollection of what has happened to him. His son witnessed the event and is here in the ED with him.) Improves with: Reports: Other (Improve with time.) Worsens with: Reports: None Context: Reports: Other (Spontaneous occurrence of a grand mal convulsion of new onset at about 0923 hrs. today while seated on an easy chair at home.). Denies: Activity, Exercise, Lifting, Sick Contact, Trauma Associated Symptoms: Reports: Confusion, Cough, cough w sputum (Chronic cough brings up occasional bit of sputum. He is oxygen dependent at 3 L/m all times due to COPD.), Malaise, Shortness of Breath, Weakness, Other. Denies: Chest Pain (Confusion the last about 10-15 minutes before he can speak normally.), Diaphoresis, Fever/Chills, Headaches, Nausea/Vomiting, Rash, Seizure, Syncope Treatments [employer]: Reports: Other (see below) (None.) Bilateral Hand Pain Score (Numeric/FACES): 9 - Related Data Allergies Allergy/AdvReac Type Severity Reaction Status Date / Time No Known Allergies Allergy Verified 04/11/19 12:06 Home Meds: Home Meds Acetaminophen 1,000 mg PO BEDTIME 03/08/19 [History] Albuterol Sulfate 1 puff INH Q6HR 03/08/19 [History] Atenolol 25 mg PO BID 03/08/19 [History] Budesonide 2 puff INH BID 03/08/19 [History] Ferrous Sulfate 325 mg PO BID 03/08/19 [History] Furosemide 40 mg PO DAILY 03/08/19 [History] Pantoprazole Sodium 40 mg PO BID 03/08/19 [History] Tamsulosin HCl 0.4 mg PO BEDTIME 03/08/19 [History] Tiotropium [Spiriva] 18 mcg INH DAILY 03/08/19 [History] tiZANidine HCl [Tizanidine HCl] 2 mg PO TID PRN 03/08/19 [History] Lidocaine 5% [Lidoderm 5%] 1 patch TOP DAILY 04/11/19 [History] levETIRAcetam [Keppra] 250 mg PO BID #30 tablet 04/11/19 [Rx] oxyCODONE HCl [Oxycodone HCl] 5 mg PO Q6H PRN 04/11/19 [History] Past Medical History Other HEENT History: allergic rhinitis Cardiovascular History: Reports: Heart Failure, High Cholesterol, Hypertension, SOB on Exertion Respiratory History: Reports: Bronchitis, Recurrent, COPD, Pneumonia, Recurrent Gastrointestinal History: Reports: GERD Genitourinary History: Reports: BPH Musculoskeletal History: Reports: Neck Pain, Chronic Other Oncologic History: CLL diagnosed about 10 years ago. Recently started on oral chemotherapy agents. Spent 2 pills daily for about 2 weeks and then increase to 3 tablets daily. - Infectious Disease History Infectious Disease History: Reports: Chicken Pox, [id number] Enterobacteriaceae, Measles, Mumps - Past Surgical History HEENT Surgical History: Reports: None Cardiovascular Surgical History: Reports: None Respiratory Surgical History: Reports: None GI Surgical History: Reports: Cholecystectomy, Hernia Repair/Other Other GI Surgeries/Procedures: Hernia repair to bilat sides Male Surgical History: Reports: None Neurological Surgical History: Reports: C-Spine, Other (See Below) Other Neurological Surgeries/Procedures: Several fusions to the upper neck and back Musculoskeletal Surgical History: Reports: Other (See Below) Other Musculoskeletal Surgeries/Procedures:: Neck surgery with fusion of several vertebrae in the neck and upper back Social & Family History - Family History Family Medical History: Noncontributory - Caffeine Use Caffeine Use: Reports: None - Living Situation & Occupation Living situation: Reports: with Family (Currently living with his son. Recently relocated from [place] where he has lived most of his life and is here because of failing health and need for help.) Occupation: Retired ED ROS GENERAL - Review of Systems Review Of Systems: See Below Constitutional: Reports: Fever, Malaise (Clinically feels febrile to me.), Weakness, Fatigue (Likely), Other (He was down to 131 pounds but apparently with good food from his son and [id number] he's up to 151 pounds.) HEENT: Reports: Glasses, Hearing Loss Respiratory: Reports: Shortness of Breath, Wheezing, Cough, Other (Productive cough. His true CHF and chronic COPD. He is on oxygen at 3 L/m at all times.). Denies: Pleuritic Chest Pain Cardiovascular: Reports: Blood Pressure Problem, Dyspnea on Exertion, Edema, Orthopnea. Denies: Chest Pain, Claudication (Chronic hypertension), Lightheadedness, Palpitations (Trace in both lower extremities chronically.) Endocrine: Reports: Fatigue GI/Abdominal: Reports: Constipation (Occasional positive constipation), Other ( Appetite is getting better.). Denies: Nausea, Stool Incontinence, Vomiting : Reports: Frequency, Other (Known to have BPH.) Musculoskeletal: Reports: Shoulder Pain ( lower back pain ), Back Pain, Leg Pain , Joint Swelling ( Asthma series restrictive component to his lung disease.), Other (Kyphosis thoracic spine.) Skin: Reports: Bruising (Bruises extremely easily. He is covered in bruises at this time.) Neurological: Reports: Seizure, Difficulty Walking, Weakness (Walks with aid of a walker.) Psychiatric: Reports: No Symptoms ( To continue his lower extremities.) Hematologic/Lymphatic: Reports: Anemia, Easy Bleeding, Easy Bruising Immunologic: Reports: No Symptoms - Physical Exam Exam: See Below Exam Limited By: No Limitations General Appearance: Alert, WD/WN, No Apparent Distress, Other (He appears very fragile cachectic in appearance covered with bruises. He is alert oriented and answers all questions to the best of his ability. Son feels in the blanks. Patient of course doesn't remember having a seizure this morning.) Eye Exam: Bilateral Eye: Normal Inspection Throat/Mouth: Normal Inspection, Normal Lips, Normal Oropharynx, Normal Voice. No: Evidence of Tongue Biting Head Exam: Atraumatic, Normocephalic Neck: Normal Inspection, Supple, Full Range of Motion, Limited Range of Motion. No: Carotid Bruit, Lymphadenopathy (L), Lymphadenopathy (R) Respiratory/Chest: No Accessory Muscle Use, Decreased Breath Sounds (Decreased air into the lower 50% of both lung moore.), Rales, Rhonchi (Pollock left lung base.), Wheezing ( Rhonchi). No: Lungs Clear, Normal Breath Sounds Cardiovascular: No Gallop, No Murmur, No Rub. No: Normal Peripheral Pulses GI/Abdominal: Normal Bowel Sounds, Soft, Non-Tender, No Organomegaly, No Mass, Pelvis Stable, Rebound Neuro Exam (Abbreviated): Alert, Oriented, CN II-XII Intact, Normal Cognition DTR: 0: Patella (R), Patella (L), Achilles (R), Achilles (L), 1+: Bicep (R), Bicep (L) Back Exam: Normal Inspection, Full Range of Motion. No: CVA Tenderness (L), CVA Tenderness (R) Extremities: Normal Inspection, Normal Range of Motion, Non-Tender, No Pedal Edema, Normal Capillary Refill Psychiatric: Normal Affect, Normal Mood Skin Exam: Warm, Dry, Ecchymosis (He has covered with bruises particular a both upper extremities both lower extremities up to the thighs knees posterior legs and a few on the abdominal wall.) EKG INTERPRETATION EKG Date: 04/11/19 Time: 12:29 Rhythm: NSR Rate (Beats/Min): 68 [place]: Normal P-Wave: Present QRS: Other (Associated early R-wave transition V3 V4 consider right ventricular.Versus septal hypertrophy.) ST-T: Other (Diffuse early R-wave transition in multiple leads. No sign of true ischemia. T wave is inverted in V1 and V2.) QT: Normal EKG Interpretation Comments: Abnormal ECG Course - Vital Signs Last Recorded V/S: Last Vital Signs Temp 36.6 C 04/11/19 12:03 Pulse 68 04/11/19 12:03 Resp 15 04/11/19 12:03 BP 162/77 H 04/11/19 12:03 Pulse Ox 90 L 04/11/19 12:03 - Orders/Labs/Meds Orders: Active Orders 24 hr Category Date Time Status Blood Glucose Check, Bedside [RC] ONETIME Care 04/11/19 12:27 Active EKG Documentation Completion [RC] STAT Care 04/11/19 12:25 Active Oxygen Therapy [RC] ASDIRECTED Care 04/11/19 12:27 Active CULTURE BLOOD [BC] Stat Lab 04/11/19 12:49 Received CULTURE BLOOD [BC] Stat Lab 04/11/19 12:53 Received Blood Culture x2 Reflex Set [OM.PC] Stat Oth 04/11/19 12:27 Ordered Labs: Laboratory Tests 04/11/19 04/11/19 04/11/19 Range/Units 12:13 12:13 12:13 WBC 53.18 H (4.23-9.07) K/mm3 RBC 3.41 L (4.63-6.08) M/mm3 Hgb 10.6 L (13.7-17.5) gm/dl Hct 34.7 L (40.1-51.0) % MCV 101.8 H (79.0-92.2) fl MCH 31.1 (25.7-32.2) pg MCHC 30.5 L (32.2-35.5) g/dl RDW Std Deviation 50.2 H (35.1-43.9) fL Plt Count 101 L (163-337) K/mm3 MPV 10.2 (9.4-12.3) fl Neutrophils % (Manual) 8 L (40-60) % Band Neutrophils % 0 (0-10) % Lymphocytes % (Manual) 91 H (20-40) % Atypical Lymphs % 0 % Monocytes % (Manual) 1 L (2-10) % Eosinophils % (Manual) 0 L (0.8-7.0) % Basophils % (Manual) 0 L (0.2-1.2) Platelet Estimate Decreased Anisocytosis 1+ slight Macrocytosis 1+ slight RBC Morph Comment Abnormal ESR (0-15) mm/hr PT 10.0 (9.7-12.0) SECONDS INR < 0.93 APTT 25 (22-31) SECONDS Sodium 134 L (136-145) mEq/L Potassium 5.3 H (3.5-5.1) mEq/L Chloride 100 (98-107) mEq/L Carbon Dioxide 32 (21-32) mEq/L Anion Gap 7.3 (5-15) BUN 15 (7-18) mg/dL Creatinine 0.7 (0.7-1.3) mg/dL Est Cr Clr Drug Dosing 85.73 mL/min Estimated GFR (MDRD) > 60 (>60) mL/min BUN/Creatinine Ratio 21.4 H (14-18) Glucose 93 (83-115) mg/dL POC Glucose (83-110) mg/dL Calcium 8.8 (8.5-10.1) mg/dL Magnesium 1.7 L (1.8-2.4) mg/dl Total Bilirubin 0.5 (0.2-1.0) mg/dL AST 14 L (15-37) U/L ALT 10 L (16-63) U/L Alkaline Phosphatase 63 (46-116) U/L C-Reactive Protein 5.8 H* (<1.0) mg/dL NT-Pro-B Natriuret Pep (0-450) pg/mL Total Protein 6.1 L (6.4-8.2) g/dl Albumin 2.9 L (3.4-5.0) g/dl Globulin 3.2 gm/dL Albumin/Globulin Ratio 0.9 L (1-2) Urine Color (Yellow) Urine Appearance (Clear) Urine pH (5.0-8.0) Ur Specific Mathews (1.005-1.030) Urine Protein (Negative) Urine Glucose (UA) (Negative) Urine Ketones (Negative) Urine Occult Blood (Negative) Urine Nitrite (Negative) Urine Bilirubin (Negative) Urine Urobilinogen (0.2-1.0) Ur Leukocyte Esterase (Negative) Urine RBC (0-5) /hpf Urine WBC (0-5) /hpf Ur Squamous Epith Cells (0-5) /hpf Urine Bacteria (FEW) /hpf Urine Mucus (FEW) /hpf 04/11/19 04/11/19 04/11/19 Range/Units 12:13 12:13 12:28 WBC (4.23-9.07) K/mm3 RBC (4.63-6.08) M/mm3 Hgb (13.7-17.5) gm/dl Hct (40.1-51.0) % MCV (79.0-92.2) fl MCH (25.7-32.2) pg MCHC (32.2-35.5) g/dl RDW Std Deviation (35.1-43.9) fL Plt Count (163-337) K/mm3 MPV (9.4-12.3) fl Neutrophils % (Manual) (40-60) % Band Neutrophils % (0-10) % Lymphocytes % (Manual) (20-40) % Atypical Lymphs % % Monocytes % (Manual) (2-10) % Eosinophils % (Manual) (0.8-7.0) % Basophils % (Manual) (0.2-1.2) Platelet Estimate Anisocytosis Macrocytosis RBC Morph Comment ESR 38 H (0-15) mm/hr PT (9.7-12.0) SECONDS INR APTT (22-31) SECONDS Sodium (136-145) mEq/L Potassium (3.5-5.1) mEq/L Chloride (98-107) mEq/L Carbon Dioxide (21-32) mEq/L Anion Gap (5-15) BUN (7-18) mg/dL Creatinine (0.7-1.3) mg/dL Est Cr Clr Drug Dosing mL/min Estimated GFR (MDRD) (>60) mL/min BUN/Creatinine Ratio (14-18) Glucose (83-115) mg/dL POC Glucose (83-110) mg/dL Calcium (8.5-10.1) mg/dL Magnesium (1.8-2.4) mg/dl Total Bilirubin (0.2-1.0) mg/dL AST (15-37) U/L ALT (16-63) U/L Alkaline Phosphatase (46-116) U/L C-Reactive Protein (<1.0) mg/dL NT-Pro-B Natriuret Pep 1569 H (0-450) pg/mL Total Protein (6.4-8.2) g/dl Albumin (3.4-5.0) g/dl Globulin gm/dL Albumin/Globulin Ratio (1-2) Urine Color Yellow (Yellow) Urine Appearance Clear (Clear) Urine pH 6.0 (5.0-8.0) Ur Specific Mathews 1.025 (1.005-1.030) Urine Protein 2+ H (Negative) Urine Glucose (UA) Negative (Negative) Urine Ketones Negative (Negative) Urine Occult Blood 2+ H (Negative) Urine Nitrite Negative (Negative) Urine Bilirubin Negative (Negative) Urine Urobilinogen 1.0 (0.2-1.0) Ur Leukocyte Esterase Negative (Negative) Urine RBC 10-20 H (0-5) /hpf Urine WBC 0-5 (0-5) /hpf Ur Squamous Epith Cells Not seen (0-5) /hpf Urine Bacteria Few (FEW) /hpf Urine Mucus Not seen (FEW) /hpf 04/11/19 Range/Units 13:07 WBC (4.23-9.07) K/mm3 RBC (4.63-6.08) M/mm3 Hgb (13.7-17.5) gm/dl Hct (40.1-51.0) % MCV (79.0-92.2) fl MCH (25.7-32.2) pg MCHC (32.2-35.5) g/dl RDW Std Deviation (35.1-43.9) fL Plt Count (163-337) K/mm3 MPV (9.4-12.3) fl Neutrophils % (Manual) (40-60) % Band Neutrophils % (0-10) % Lymphocytes % (Manual) (20-40) % Atypical Lymphs % % Monocytes % (Manual) (2-10) % Eosinophils % (Manual) (0.8-7.0) % Basophils % (Manual) (0.2-1.2) Platelet Estimate Anisocytosis Macrocytosis RBC Morph Comment ESR (0-15) mm/hr PT (9.7-12.0) SECONDS INR APTT (22-31) SECONDS Sodium (136-145) mEq/L Potassium (3.5-5.1) mEq/L Chloride (98-107) mEq/L Carbon Dioxide (21-32) mEq/L Anion Gap (5-15) BUN (7-18) mg/dL Creatinine (0.7-1.3) mg/dL Est Cr Clr Drug Dosing mL/min Estimated GFR (MDRD) (>60) mL/min BUN/Creatinine Ratio (14-18) Glucose (83-115) mg/dL POC Glucose 80 L (83-110) mg/dL Calcium (8.5-10.1) mg/dL Magnesium (1.8-2.4) mg/dl Total Bilirubin (0.2-1.0) mg/dL AST (15-37) U/L ALT (16-63) U/L Alkaline Phosphatase (46-116) U/L C-Reactive Protein (<1.0) mg/dL NT-Pro-B Natriuret Pep (0-450) pg/mL Total Protein (6.4-8.2) g/dl Albumin (3.4-5.0) g/dl Globulin gm/dL Albumin/Globulin Ratio (1-2) Urine Color (Yellow) Urine Appearance (Clear) Urine pH (5.0-8.0) Ur Specific Mathews (1.005-1.030) Urine Protein (Negative) Urine Glucose (UA) (Negative) Urine Ketones (Negative) Urine Occult Blood (Negative) Urine Nitrite (Negative) Urine Bilirubin (Negative) Urine Urobilinogen (0.2-1.0) Ur Leukocyte Esterase (Negative) Urine RBC (0-5) /hpf Urine WBC (0-5) /hpf Ur Squamous Epith Cells (0-5) /hpf Urine Bacteria (FEW) /hpf Urine Mucus (FEW) /hpf Meds: Medications Discontinued Medications Generic Name Dose Route Start Last Admin Trade Name Kinza PRN Reason Stop Dose Admin Levetiracetam 250 mg 04/11/19 15:47 Keppra PO 04/11/19 15:48 NOW ONE Levetiracetam 250 mg 04/11/19 15:53 Keppra PO 04/11/19 15:54 ONETIME ONE - Radiology Interpretation Free Text/Narrative:: 78-year-old male presents the ED after suffering a seizure at home this morning. Was witnessed by his son and described very well. He was speaking with his father who is on the couch or easy chair and he suddenly stared off into space became nonverbal and started drooling and morning a bit and then exhibited some tonic-clonic activities mostly noted in the upper extremities by the son. He went to run to call for 911. When he came back there was no further tonic-clonic activity but his dad remained nonverbal for about 10-15 minutes before he did finally speak and make sense. Course has no recollection of what is happened to him. He has never had a seizure before. He is in very poor health over with chronic leukocytic leukemia for 10 years. Apparently has become more proliferative as of late as he is started the chemotherapy pill 2 weeks ago which he takes twice daily and these do to increase it to 3 times daily. Need to find out what this is encasing can cause seizure disorder. With amount of bruising that he has on his upper extremities and lower extremities appears that he may be very low on platelets and be prone to a spontaneous intracranial bleed. Neuro exam is grossly normal however. He has some weakness in both lower extremities but he states this is chronic for him. Plan CT head to be done. Routine lab work and blood cultures 2 as he feels warm to me. He has chronic COPD he and is on oxygen 3 L/m all times. He has a bilateral expiratory wheezes on occasion some rhonchi in upper lung moore and rales left lung field. He is on Lasix daily as well. He is known to have 3 compression fractures in his lower back as well. - Re-Assessments/Exams Free Text/Narrative Re-Assessment/Exam: 04/11/19 13:31 ET head shows ventricles along the basal cisterns and sulci over the convexities are mildly prominent normal for his age. Minimal diminished density is noted within the periventricular white matter compatible with small vessel ischemic demyelination changes. No other abnormal parenchymal abdomen densities are noted. It is intracranial hemorrhage. No midline shift or mass effect is noted. Atherosclerotic Desiccation is seen within the carotid siphon. Visualized mastoid sinuses and visualized paranasal sinuses showed nothing acute. Chest x-ray done portably is felt to be stable from previous exam. There is diffuse increased lung markings which appear to be chronic. No acute parenchymal changes definitely appreciated heart is not enlarged tortuous thoracic aorta appreciated. Bony structures are mildly osteopenic. 04/11/19 15:34 White count is elevated at 53.18. The differential shows 91% lymphocytes compatible with leukocytic leukemia. Hemoglobin is 10.6 with hematocrit of 34.7. MCV mildly elevated at 101.8. Platelet count is 101,000 low normal. Sedimentation rate is 38. PT is 10.0 with a INR of less than 0.93. PTT is 25. Sodium is 134. Potassium is slightly elevated at 5.3. Chloride 100 bicarbonate is 32. Anion gap is 7.3. BUN is 15 0.7. GFR is greater than 60. BUN/ creatinine ratio slightly elevated at 21.4. Glucose is 93. Calcium is 8.8 with a magnesium slightly low at 1.7. Total bilirubin is 0.5 the remainder the liver function is normal C-reactive protein is slightly elevated at 5.8. BNP is 1569. Low at 6.1 with an albumin fraction of 2.9. Urinalysis shows 2+ proteinuria 2+ occult blood on the dip on the micro-chills 10-20 RBCs per high-power field but no signs of infection 04/11/19 15:49 research of all his medications the only one that would lower his seizure threshold would be tizanidine and is less than 1% chance. Researched his current chemotherapy drug , IBRUTINIB--he takes 1 capsule twice daily believed to be 70 mg strength. This is strictly for his CLL. He does not list seizures as a potential side effect. Been on the medication for 5 days however. The history suggests however that he had a similar type episode in January which redated the use of his chemotherapeutic drug. However this means to seizures which means he probably needs to be on prophylactic medication. I'm going to place him on Keppra 250 mg twice daily starting in the ED. Some be due in the morning. Tomorrow to discuss whether or not his current chemotherapy medicine is problematic or not. Of all the labs and a CT will be provided. Departure - Departure Time of Disposition: 15:54 Disposition: Home, Self-Care 01 Condition: Fair Clinical Impression: New onset seizure without head trauma, Chronic lymphocytic leukemia Anemia Qualifiers: Anemia type: other cause - Discharge Information *PRESCRIPTION DRUG MONITORING PROGRAM REVIEWED*: Not Applicable *COPY OF PRESCRIPTION DRUG MONITORING REPORT IN PATIENT [place]: Not Applicable Prescriptions: levETIRAcetam [Keppra] 250 mg PO BID #30 tablet Referrals: PCP,Unknown [Ordering Only Provider] - Forms: ED Department Discharge Additional Instructions: Evaluation the emergency room today in regards to new onset seizure disorder. As was witnessed by her son-in-law and described very well. Ictal state last a good 10-15 minutes. Lasted probably 30-[address] of the brain is within normal limits i.e. changes that are visualized are due to age but there was no sign of intracranial bleeding or mass effect. Lab tests week confirm your chronic lymphocytic leukemia problem. The medication that we researched that might be problematic his tizanidine as it does lower your seizure threshold but less than 1% of the time. Current chemotherapeutic agent which was started 5 days ago is not listed as causing a any problematic seizures. She however suggests that you probably had a seizure in January of this year which predates starting the new chemotherapy tablet. It is therefore my suggestion that you go on antiseizure medication to prevent seizures from occurring as a bad fall from a seizure could break her hip or cracker had open. Using Keppra 250 mg tablet twice daily morning and bedtime until follow-up with your oncologist. It is suggested that he likely should follow-up with neurologist at the same time in [place]. The changes are to be made to your medications. - My Orders Last 24 Hours: My Active Orders 04/11/19 12:25 EKG Documentation Completion [RC] STAT 04/11/19 12:27 Blood Glucose Check, Bedside [RC] ONETIME Oxygen Therapy [RC] ASDIRECTED Blood Culture x2 Reflex Set [OM.PC] Stat 04/11/19 12:49 CULTURE BLOOD [BC] Stat 04/11/19 12:53 CULTURE BLOOD [BC] Stat - Assessment/Plan Last 24 Hours: My Active Orders 04/11/19 12:25 EKG Documentation Completion [RC] STAT 04/11/19 12:27 Blood Glucose Check, Bedside [RC] ONETIME Oxygen Therapy [RC] ASDIRECTED Blood Culture x2 Reflex Set [OM.PC] Stat 04/11/19 12:49 CULTURE BLOOD [BC] Stat 04/11/19 12:53 CULTURE BLOOD [BC] Stat
--- NOTE | 2019-04-11 13:29 | CT ---
Head CT Technique: Multiple axial sections through the brain were obtained. Intravenous contrast was not utilized. Comparison: No previous study. Findings: Ventricles along with basal cisterns and sulci over the convexities are mildly prominent. Minimal diminished density is noted within the periventricular white matter compatible with small vessel ischemic demyelination change. No other abnormal parenchymal densities are seen. No evidence of intracranial hemorrhage. No midline shift or mass effect is seen. Atherosclerotic calcification is seen within the carotid siphon. Visualized mastoid sinuses and visualized paranasal sinuses show nothing acute. No acute calvarial abnormality is appreciated. Impression: 1. Mild senescent change. 2. Nothing acute is appreciated on noncontrast head CT exam. Diagnostic code #2
--- NOTE | 2019-04-11 13:29 | CR ---
Chest: Portable view of the chest was obtained. Comparison: Prior chest x-ray of 03/09/19. Findings: Diffuse increased lung markings are seen which appear chronic. No acute parenchymal change is definitely appreciated. Heart is not enlarged. Tortuous thoracic aorta is seen. Bony structures are slightly osteopenic. Impression: 1. Portable chest is felt to be stable from previous exam. Nothing acute is definitely appreciated. Diagnostic code #2
[2019-04-11] MEDS ORDERED: levETIRAcetam Soln 500 MG/5 ML Cup PO ONE (15:47)
[2019-04-11] MEDS ORDERED: levETIRAcetam 500 MG Tab PO ONE (15:53)
== END 2019-04-11 16:24 | disposition home or self-care (01) ==
LOC: JD.ED 12:01
DX: C91.10 Chronic lymphocytic leukemia of B-cell type not having achieved remission (principal); D64.89 Other specified anemias; R56.9 Unspecified convulsions; I11.0 Hypertensive heart disease with heart failure; I50.9 Heart failure, unspecified; E78.00 Pure hypercholesterolemia, unspecified; J44.9 Chronic obstructive pulmonary disease, unspecified; Z79.899 Other long term (current) drug therapy
CPT/HCPCS: 36415; 70450; 71045; 80053; 81001; 82962; 83735; 83880; 85007; 85027; 85610; 85652; 85730; 86140; 87040; 93005; 99285; A9270; 93010

== ENCOUNTER 2019-04-24 16:54 | Emergency (ER) | payer MEDICARE, OTHER ==
[2019-04-24] MEDS ORDERED: Sodium Chloride 0.9% 10 ML Syringe FLUSH PRN (17:05)
[2019-04-24] MEDS ORDERED: Tenecteplase 50 MG Kit ONE (17:06)
[2019-04-24] MEDS ORDERED: Nitroglycerin 2% Oint 1 GM UD Packet TOP ONE (17:27)
--- NOTE | 2019-04-24 17:35 | EDM.PDOC ---
<Jamaal Greene Radha - Last Filed: 04/24/19 19:19> ED HPI GENERAL MEDICAL PROBLEM - General Chief Complaint: Chest Pain Stated Complaint: CHEST PAIN Time Seen by Provider: 04/24/19 17:05 Source of Information: Reports: Patient, RN Notes Reviewed - History of Present Illness INITIAL COMMENTS - FREE TEXT/NARRATIVE: 78-year-old male had onset of anterior chest discomfort without radiation about one hour ago. As described as a quite severe tightness and heaviness anterior chest with feeling of lightheaded and dizziness. No abdominal pain nausea or vomiting. Pain did not radiate to his left arm. He did get somewhat more short of breath than usual. He does have history of COPD, on oxygen 15/02. He states he has been coughing a lot recently, somewhat more than usual occasionally productive. 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 He has a lot of bruising on his arms and when asked about that his family states that he is very prone to bruising and has been told that he is at risk for bleeding difficulties. His daughter also states somewhat later that he is DNR CODE STATUS. Chest Pain Score (Numeric/FACES): 6 - Related Data Allergies Allergy/AdvReac Type Severity Reaction Status Date / Time No Known Allergies Allergy Verified 04/24/19 17:05 Home Meds: Home Meds Acetaminophen 1,000 mg PO BEDTIME 03/08/19 [History] Albuterol Sulfate 1 puff INH Q6HR 03/08/19 [History] Atenolol 25 mg PO BID 03/08/19 [History] Budesonide 2 puff INH BID 03/08/19 [History] Ferrous Sulfate 325 mg PO BID 03/08/19 [History] Furosemide 40 mg PO DAILY 03/08/19 [History] Pantoprazole Sodium 40 mg PO BID 03/08/19 [History] Tamsulosin HCl 0.4 mg PO BEDTIME 03/08/19 [History] Tiotropium [Spiriva] 18 mcg INH DAILY 03/08/19 [History] tiZANidine HCl [Tizanidine HCl] 2 mg PO TID PRN 03/08/19 [History] Lidocaine 5% [Lidoderm 5%] 1 patch TOP DAILY 04/11/19 [History] levETIRAcetam [Keppra] 250 mg PO BID #30 tablet 04/11/19 [Rx] oxyCODONE HCl [Oxycodone HCl] 5 mg PO Q6H PRN 04/11/19 [History] Past Medical History Other HEENT History: allergic rhinitis Cardiovascular History: Reports: Heart Failure, High Cholesterol, Hypertension, SOB on Exertion Respiratory History: Reports: Bronchitis, Recurrent, COPD, Pneumonia, Recurrent Gastrointestinal History: Reports: GERD Genitourinary History: Reports: BPH Musculoskeletal History: Reports: Neck Pain, Chronic Other Oncologic History: CLL diagnosed about 10 years ago. Recently started on oral chemotherapy agents. Spent 2 pills daily for about 2 weeks and then increase to 3 tablets daily. - Infectious Disease History Infectious Disease History: Reports: Chicken Pox, YOO-Cuqndlarix-Zynltbriv Enterobacteriaceae, Measles, Mumps - Past Surgical History HEENT Surgical History: Reports: None Cardiovascular Surgical History: Reports: None Respiratory Surgical History: Reports: None GI Surgical History: Reports: Cholecystectomy, Hernia Repair/Other Other GI Surgeries/Procedures: Hernia repair to bilat sides Male Surgical History: Reports: None Neurological Surgical History: Reports: C-Spine, Other (See Below) Other Neurological Surgeries/Procedures: Several fusions to the upper neck and back Musculoskeletal Surgical History: Reports: Other (See Below) Other Musculoskeletal Surgeries/Procedures:: Neck surgery with fusion of several vertebrae in the neck and upper back Social & Family History - Family History Family Medical History: Noncontributory - Caffeine Use Caffeine Use: Reports: None - Living Situation & Occupation Living situation: Reports: with Family (Currently living with his son. Recently relocated from [place] where he has lived most of his life and is here because of failing health and need for help.) Occupation: Retired ED ROS GENERAL - Review of Systems Review Of Systems: See Below Constitutional: Denies: Fever, Chills, Diaphoresis HEENT: Denies: Rhinitis, Throat Pain Respiratory: Reports: Shortness of Breath (Chronically, uses home oxygen 24 7), Cough, Sputum Cardiovascular: Reports: Chest Pain (Occasional now better) GI/Abdominal: Denies: Abdominal Pain, Nausea, Vomiting Musculoskeletal: Denies: Shoulder Pain, Arm Pain Skin: Reports: No Symptoms. Denies: Diaphoresis Neurological: Reports: Dizziness (Now better) ED EXAM, GENERAL - Physical Exam Exam: See Below General Appearance: Alert, Anxious (Mild), Mild Distress Eye Exam: Bilateral Eye: PERRL Throat/Mouth: Normal Inspection, Normal Oropharynx Head: Atraumatic Neck: Supple, Full Range of Motion Respiratory/Chest: No Respiratory Distress, Decreased Breath Sounds (Breath sounds somewhat decreased bilateral), Rales (Bilateral lower bases). No: Rhonchi, Wheezing Cardiovascular: Regular Rate, Rhythm GI/Abdominal: Soft, Non-Tender Back Exam: No: CVA Tenderness (L), CVA Tenderness (R) Extremities: No: Pedal Edema, Leg Pain, Redness Neurological: Alert, Oriented, No Motor/Sensory Deficits Skin Exam: Warm, Dry, Normal Color EKG INTERPRETATION EKG Date: 04/24/19 Rhythm: NSR [place]: Normal P-Wave: Present QRS: Other (LPFB) ST-T: Depressed (1-2 mm depression V2-v6) Course - Vital Signs Last Recorded V/S: Last Vital Signs Temp 37.0 C 04/24/19 17:01 Pulse 92 04/24/19 17:01 Resp 20 04/24/19 17:01 BP 181/79 H 04/24/19 17:01 Pulse Ox 92 L 04/24/19 18:51 - Orders/Labs/Meds Orders: Active Orders 24 hr Category Date Time Status EKG 12 Lead [EKG Documentation Completion] [RC] STAT Care 04/24/19 17:06 Active EKG 12 Lead [EKG Documentation Completion] [RC] STAT Care 04/24/19 19:04 Active Peripheral IV Care [RC] . DIRECTED Care 04/24/19 17:06 Active RT Aerosol Therapy [RC] ASDIRECTED Care 04/24/19 18:51 Active Chest 1V Frontal [CR] Stat Exams 04/24/19 17:06 Taken Sodium Chloride 0.9% [Saline Flush] Med 04/24/19 17:05 Active 10 ml FLUSH ASDIRECTED PRN Peripheral IV Insertion Pediatric [OM.PC] Routine Oth 04/24/19 17:06 Ordered Medication Orders Sodium Chloride (Saline Flush) 10 ml FLUSH ASDIRECTED PRN PRN Reason: Keep Vein Open Last Admin: 04/24/19 17:32 Dose: 10 ml Labs: Laboratory Tests 04/24/19 04/24/19 04/24/19 Range/Units 17:10 17:10 17:10 WBC 32.23 H (4.23-9.07) K/mm3 RBC 3.37 L (4.63-6.08) M/mm3 Hgb 10.8 L (13.7-17.5) gm/dl Hct 33.7 L (40.1-51.0) % MCV 100.0 H (79.0-92.2) fl MCH 32.0 (25.7-32.2) pg MCHC 32.0 L (32.2-35.5) g/dl RDW Std Deviation 47.8 H (35.1-43.9) fL Plt Count 122 L (163-337) K/mm3 MPV 10.4 (9.4-12.3) fl Neut % (Auto) 35.1 (34.0-67.9) % Lymph % (Auto) 59.5 H (21.8-53.1) % Brooks % (Auto) 3.6 L (5.3-12.2) % Eos % (Auto) 0.2 L (0.8-7.0) Baso % (Auto) 1.6 H (0.1-1.2) % Neut # (Auto) 11.32 H (1.78-5.38) K/mm3 Lymph # (Auto) 19.18 H (1.32-3.57) K/mm3 Brooks # (Auto) 1.16 H (0.30-0.82) K/mm3 Eos # (Auto) 0.06 (0.04-0.54) K/mm3 Baso # (Auto) 0.51 H (0.01-0.08) K/mm3 Manual Slide Review Abnormal smear PT 10.6 (9.7-12.0) SECONDS INR 0.97 APTT 25 (22-31) SECONDS Puncture Site ABG pH (7.35-7.45) ABG pCO2 (35.0-45.0) mmHg ABG pO2 (80.0-100.0) mmHg ABG HCO3 (22.0-26.0) meq/L ABG O2 Saturation (96.0-97.0) % ABG Base Excess (-2-2.0) Ehsan Test A-a Gradient mmHg O2 Delivery Device Oxygen Flow Rate FiO2 (21.00-100.00) % Sodium 134 L (136-145) mEq/L Potassium 4.6 (3.5-5.1) mEq/L Chloride 98 (98-107) mEq/L Carbon Dioxide 31 (21-32) mEq/L Anion Gap 9.6 (5-15) BUN 15 (7-18) mg/dL Creatinine 0.7 (0.7-1.3) mg/dL Est Cr Clr Drug Dosing 87.88 mL/min Estimated GFR (MDRD) > 60 (>60) mL/min BUN/Creatinine Ratio 21.4 H (14-18) Glucose 113 (83-115) mg/dL Calcium 8.6 (8.5-10.1) mg/dL Total Bilirubin 0.8 (0.2-1.0) mg/dL AST 14 L (15-37) U/L ALT 8 L (16-63) U/L Alkaline Phosphatase 63 (46-116) U/L CK-MB (CK-2) (0-3.6) ng/ml Troponin I (0.00-0.056) ng/mL Total Protein 6.2 L (6.4-8.2) g/dl Albumin 2.7 L (3.4-5.0) g/dl Globulin 3.5 gm/dL Albumin/Globulin Ratio 0.8 L (1-2) 04/24/19 04/24/19 04/24/19 Range/Units 17:10 19:55 20:17 WBC (4.23-9.07) K/mm3 RBC (4.63-6.08) M/mm3 Hgb (13.7-17.5) gm/dl Hct (40.1-51.0) % MCV (79.0-92.2) fl MCH (25.7-32.2) pg MCHC (32.2-35.5) g/dl RDW Std Deviation (35.1-43.9) fL Plt Count (163-337) K/mm3 MPV (9.4-12.3) fl Neut % (Auto) (34.0-67.9) % Lymph % (Auto) (21.8-53.1) % Brooks % (Auto) (5.3-12.2) % Eos % (Auto) (0.8-7.0) Baso % (Auto) (0.1-1.2) % Neut # (Auto) (1.78-5.38) K/mm3 Lymph # (Auto) (1.32-3.57) K/mm3 Brooks # (Auto) (0.30-0.82) K/mm3 Eos # (Auto) (0.04-0.54) K/mm3 Baso # (Auto) (0.01-0.08) K/mm3 Manual Slide Review PT (9.7-12.0) SECONDS INR APTT (22-31) SECONDS Puncture Site Rt radial ABG pH 7.35 (7.35-7.45) ABG pCO2 62.0 H (35.0-45.0) mmHg ABG pO2 75.0 L (80.0-100.0) mmHg ABG HCO3 32.9 H (22.0-26.0) meq/L ABG O2 Saturation 94.3 L (96.0-97.0) % ABG Base Excess 6.5 H (-2-2.0) Ehsan Test Positive A-a Gradient 105 mmHg O2 Delivery Device Cannula Oxygen Flow Rate 4.0 FiO2 36.00 (21.00-100.00) % Sodium (136-145) mEq/L Potassium (3.5-5.1) mEq/L Chloride (98-107) mEq/L Carbon Dioxide (21-32) mEq/L Anion Gap (5-15) BUN (7-18) mg/dL Creatinine (0.7-1.3) mg/dL Est Cr Clr Drug Dosing mL/min Estimated GFR (MDRD) (>60) mL/min BUN/Creatinine Ratio (14-18) Glucose (83-115) mg/dL Calcium (8.5-10.1) mg/dL Total Bilirubin (0.2-1.0) mg/dL AST (15-37) U/L ALT (16-63) U/L Alkaline Phosphatase (46-116) U/L CK-MB (CK-2) (0-3.6) ng/ml Troponin I < 0.017 0.036 (0.00-0.056) ng/mL Total Protein (6.4-8.2) g/dl Albumin (3.4-5.0) g/dl Globulin gm/dL Albumin/Globulin Ratio (1-2) 09/30/19 09/30/19 Range/Units 20:17 22:40 WBC (4.23-9.07) K/mm3 RBC (4.63-6.08) M/mm3 Hgb (13.7-17.5) gm/dl Hct (40.1-51.0) % MCV (79.0-92.2) fl MCH (25.7-32.2) pg MCHC (32.2-35.5) g/dl RDW Std Deviation (35.1-43.9) fL Plt Count (163-337) K/mm3 MPV (9.4-12.3) fl Neut % (Auto) (34.0-67.9) % Lymph % (Auto) (21.8-53.1) % Brooks % (Auto) (5.3-12.2) % Eos % (Auto) (0.8-7.0) Baso % (Auto) (0.1-1.2) % Neut # (Auto) (1.78-5.38) K/mm3 Lymph # (Auto) (1.32-3.57) K/mm3 Brooks # (Auto) (0.30-0.82) K/mm3 Eos # (Auto) (0.04-0.54) K/mm3 Baso # (Auto) (0.01-0.08) K/mm3 Manual Slide Review PT (9.7-12.0) SECONDS INR APTT (22-31) SECONDS Puncture Site ABG pH (7.35-7.45) ABG pCO2 (35.0-45.0) mmHg ABG pO2 (80.0-100.0) mmHg ABG HCO3 (22.0-26.0) meq/L ABG O2 Saturation (96.0-97.0) % ABG Base Excess (-2-2.0) Ehsan Test A-a Gradient mmHg O2 Delivery Device Oxygen Flow Rate FiO2 (21.00-100.00) % Sodium (136-145) mEq/L Potassium (3.5-5.1) mEq/L Chloride (98-107) mEq/L Carbon Dioxide (21-32) mEq/L Anion Gap (5-15) BUN (7-18) mg/dL Creatinine (0.7-1.3) mg/dL Est Cr Clr Drug Dosing mL/min Estimated GFR (MDRD) (>60) mL/min BUN/Creatinine Ratio (14-18) Glucose (83-115) mg/dL Calcium (8.5-10.1) mg/dL Total Bilirubin (0.2-1.0) mg/dL AST (15-37) U/L ALT (16-63) U/L Alkaline Phosphatase (46-116) U/L CK-MB (CK-2) 1.7 1.4 (0-3.6) ng/ml Troponin I 0.042 (0.00-0.056) ng/mL Total Protein (6.4-8.2) g/dl Albumin (3.4-5.0) g/dl Globulin gm/dL Albumin/Globulin Ratio (1-2) Meds: Medications Generic Name Dose Route Start Last Admin Trade Name Freq PRN Reason Stop Dose Admin Sodium Chloride 10 ml 04/24/19 17:05 04/24/19 17:32 Saline Flush FLUSH 10 ml ASDIRECTED PRN Administration Keep Vein Open Discontinued Medications Generic Name Dose Route Start Last Admin Trade Name Freq PRN Reason Stop Dose Admin Albuterol/Ipratropium 3 ml 04/24/19 18:51 04/24/19 19:14 Duoneb 3.0-0.5 Mg/3 Ml NEB 04/24/19 18:52 3 ml ONETIME ONE Administration Nitroglycerin 1 gm 04/24/19 17:27 04/24/19 17:33 Nitro-Bid 2% TOP 04/24/19 17:28 1 gm ONETIME ONE Administration Tenecteplase Confirm 04/24/19 17:06 04/24/19 17:25 Tnkase Administered 04/24/19 17:07 Not Given Dose 50 mg .ROUTE .STK-MED ONE - Re-Assessments/Exams Free Text/Narrative Re-Assessment/Exam: 04/24/19 18:25. Patient is resting pain-free. His initial troponin did come back negative. His chest x-ray does show increased markings similar to prior extremity of just a couple of weeks ago felt to be chronic at that time. White blood count very elevated at 32,000 2:30. He does have the history of lymphoma as documented. His white blood count 2 weeks ago was 53,202 months ago 30,800. 19:13. Change of shift, will transfer care to Dr. Garcia. He does need a 3 hour troponin be repeated in about 45 minutes. His nurse did come to me a bit ago and told his sats of fallen down to the 85-86% level sleeping. That she elevate his head and chest more on the clot and of also ordered a dual neb. We' ll plan to repeat gases after the dual neb. I been informed that he had been on about 2 L nasal cannula and more recently has increased his O2 level to 4 L due to worsening shortness of breath. Departure - Departure Disposition: Home, Self-Care 01 Clinical Impression: Non-cardiac chest pain, CLL (chronic lymphocytic leukemia) Instructions: Nonspecific Chest Pain, [id number] Referrals: Skye Buck MD [Primary Care Provider] - Forms: ED Department Discharge Additional Instructions: Evaluation in the emergency room today in regards to a half-hour bout of significant central chest pressure discomfort. He did pretty well gone away by the time he had reached the hospital. Initial cardiac workup showed negative markers for heart attack. Second ones done 3 hours later were elevated compared to the first but still well within the normal range and the third set done 5 hours after development of chest pain remained well within the normal range. Therefore it appears unlikely that any cardiac or significant cardiac event has occurred. Of course return to the hospital if you develop any similar type severe central chest pain. Continue all current medications as before. <Oskar Garcia - Last Filed: 04/24/19 23:50> Course - Re-Assessments/Exams Free Text/Narrative Re-Assessment/Exam: 04/24/19 21:56 repeat troponin is elevated at 0.036 but still is in the normal range. Initial troponin was less than 0.017. I'm going to have a CK-MB fraction done on the labs ordered at 2000 hrs. and repeat them at this time with another serum troponin to be absolute sure this patient has not had a mild myocardial infarction. Explained this to the family at this time. 04/24/19 23:47 Third troponin came back at 0.042 still well within the normal range. CK-MB fraction also came back at 1.4 unchanged. Therefore there is little doubt that he had any myocardial infarction. 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 Departure - Departure Time of Disposition: 23:47 Reason for Transfer *Q: Other Condition: Fair
[2019-04-24] MEDS ORDERED: Albuterol/Ipratropium 3.0-0.5 MG/3 ML Neb Soln NEB ONE (18:51)
--- NOTE | 2019-04-25 08:58 | CR ---
Chest: Portable view of the chest was obtained. Comparison: Prior chest x-ray of 04/11/19. Increased lung markings are noted which appear fairly similar to previous exam. I do not see any definite acute parenchymal change. Heart size is within normal limits for portable technique. Tortuous thoracic aorta is noted. Scoliosis and degenerative change is noted within the spine. Impression: 1. Findings as described above. Nothing acute is definitely appreciated. Diagnostic code #2
== END 2019-04-24 23:55 | disposition home or self-care (01) ==
LOC: JD.ED 16:54
DX: R07.89 Other chest pain (principal); C91.10 Chronic lymphocytic leukemia of B-cell type not having achieved remission; I11.0 Hypertensive heart disease with heart failure; I50.9 Heart failure, unspecified; J44.9 Chronic obstructive pulmonary disease, unspecified; K21.9 Gastro-esophageal reflux disease without esophagitis; N40.0 Benign prostatic hyperplasia without lower urinary tract symptoms; Z90.49 Acquired absence of other specified parts of digestive tract; Z79.899 Other long term (current) drug therapy
CPT/HCPCS: 36415; 36600; 71045; 80053; 82553; 82803; 83880; 84484; 85025; 85610; 85730; 93005; 94640; 99285; A9270; 93010; 99284; J7620-GY

== ENCOUNTER 2019-05-02 02:26 | Emergency (ER) | payer MEDICARE, OTHER ==
--- NOTE | 2019-05-02 02:33 | EDM.PDOC ---
ED HPI GENERAL MEDICAL PROBLEM - General Chief Complaint: Chest Pain Stated Complaint: CHEST PAIN Time Seen by Provider: 05/02/19 02:33 - History of Present Illness INITIAL COMMENTS - FREE TEXT/NARRATIVE: 78-year-old male presents emergency room with chest pain. This started shortly before arrival lasted 15 minutes or so and then started to subside by the time I examined the patient the pain was down to about a 3. The patient was seen here recently with similar complaint Is unremarkable. 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 The patient was at rest when this chest pain woke him up. Left Chest Pain Score (Numeric/FACES): 6 - Related Data Allergies Allergy/AdvReac Type Severity Reaction Status Date / Time No Known Allergies Allergy Verified 04/24/19 17:05 Home Meds: Home Meds Acetaminophen 1,000 mg PO BEDTIME 03/08/19 [History] Albuterol Sulfate 1 puff INH Q6HR 03/08/19 [History] Atenolol 25 mg PO BID 03/08/19 [History] Budesonide 2 puff INH BID 03/08/19 [History] Ferrous Sulfate 325 mg PO BID 03/08/19 [History] Furosemide 40 mg PO DAILY 03/08/19 [History] Pantoprazole Sodium 40 mg PO BID 03/08/19 [History] Tamsulosin HCl 0.4 mg PO BEDTIME 03/08/19 [History] Tiotropium [Spiriva] 18 mcg INH DAILY 03/08/19 [History] tiZANidine HCl [Tizanidine HCl] 2 mg PO TID PRN 03/08/19 [History] Lidocaine 5% [Lidoderm 5%] 1 patch TOP DAILY 04/11/19 [History] levETIRAcetam [Keppra] 250 mg PO BID #30 tablet 04/11/19 [Rx] oxyCODONE HCl [Oxycodone HCl] 5 mg PO Q6H PRN 04/11/19 [History] Nitroglycerin [Nitrostat] 0.4 mg SL ASDIRECTED PRN #10 tab.sl 05/02/19 [Rx] Past Medical History Other HEENT History: allergic rhinitis Cardiovascular History: Reports: Heart Failure, High Cholesterol, Hypertension, SOB on Exertion Respiratory History: Reports: Bronchitis, Recurrent, COPD, Pneumonia, Recurrent Gastrointestinal History: Reports: GERD Genitourinary History: Reports: BPH Musculoskeletal History: Reports: Neck Pain, Chronic Oncologic (Cancer) History: Reports: Other (See Below) Other Oncologic History: CLL diagnosed about 10 years ago. Recently started on oral chemotherapy agents. Spent 2 pills daily for about 2 weeks and then increase to 3 tablets daily. - Infectious Disease History Infectious Disease History: Reports: Chicken Pox, [id number]-[id number]-Evgydmnwu Enterobacteriaceae, Measles, Mumps - Past Surgical History HEENT Surgical History: Reports: None Cardiovascular Surgical History: Reports: None Respiratory Surgical History: Reports: None GI Surgical History: Reports: Cholecystectomy, Hernia Repair/Other Other GI Surgeries/Procedures: Hernia repair to bilat sides Male Surgical History: Reports: None Neurological Surgical History: Reports: C-Spine, Other (See Below) Other Neurological Surgeries/Procedures: Several fusions to the upper neck and back Musculoskeletal Surgical History: Reports: Other (See Below) Other Musculoskeletal Surgeries/Procedures:: Neck surgery with fusion of several vertebrae in the neck and upper back Social & Family History - Family History Family Medical History: Noncontributory - Caffeine Use Caffeine Use: Reports: None - Living Situation & Occupation Living situation: Reports: with Family (Currently living with his son. Recently relocated from [place] where he has lived most of his life and is here because of failing health and need for help.) Occupation: Retired ED ROS GENERAL - Review of Systems Review Of Systems: See Below Constitutional: Reports: No Symptoms HEENT: Reports: No Symptoms Respiratory: Reports: No Symptoms Cardiovascular: Reports: Chest Pain, Edema. Denies: Dyspnea on Exertion Endocrine: Reports: No Symptoms GI/Abdominal: Reports: No Symptoms : Reports: No Symptoms Musculoskeletal: Reports: No Symptoms Skin: Reports: No Symptoms Neurological: Reports: No Symptoms ED EXAM, GENERAL - Physical Exam Exam: See Below Exam Limited By: Uncooperative General Appearance: Alert, No Apparent Distress Head: Atraumatic, Normocephalic Neck: Normal Inspection, Supple, Non-Tender, Full Range of Motion Respiratory/Chest: No Respiratory Distress, Lungs Clear, Normal Breath Sounds Cardiovascular: Other (+1 lower extremity edema mostly around the ankles) GI/Abdominal: Normal Bowel Sounds, Soft, Non-Tender EKG INTERPRETATION EKG Date: 05/02/19 Rhythm: NSR [place]: Normal P-Wave: Present QRS: RBBB ST-T: Other (Nonspecific nondiagnostic changes) QT: Normal MT/PQ Interval: He has a first-degree AV block Comparison: Change From Previous EKG (He had noticeable ST depression in V2 and V3 on the 30 of last month seems to have resolved) EKG Interpretation Comments: Abnormal EKG Course - Vital Signs Last Recorded V/S: Last Vital Signs Temp 36.4 C 05/02/19 02:32 Pulse 89 05/02/19 02:32 Resp 13 05/02/19 02:32 BP 182/76 H 05/02/19 02:57 Pulse Ox 92 L 05/02/19 02:32 - Orders/Labs/Meds Orders: Active Orders 24 hr Category Date Time Status EKG Documentation Completion [RC] ASDIRECTED Care 05/02/19 02:47 Active Chest 1V Frontal [CR] Stat Exams 05/02/19 02:46 Stop Req Nitroglycerin [Nitrostat] Med 05/02/19 02:53 Active 0.4 mg SL Q5M PRN EKG 12 Lead [EK] Stat Ther 05/02/19 02:46 Ordered Medication Orders Nitroglycerin (Nitrostat) 0.4 mg SL Q5M PRN PRN Reason: Chest Pain Last Admin: 05/02/19 02:57 Dose: 0.4 mg Labs: Laboratory Tests 05/02/19 05/02/19 Range/Units 02:40 02:40 WBC 22.39 H (4.23-9.07) K/mm3 RBC 3.56 L (4.63-6.08) M/mm3 Hgb 11.3 L (13.7-17.5) gm/dl Hct 35.1 L (40.1-51.0) % MCV 98.6 H (79.0-92.2) fl MCH 31.7 (25.7-32.2) pg MCHC 32.2 (32.2-35.5) g/dl RDW Std Deviation 46.1 H (35.1-43.9) fL Plt Count 133 L (163-337) K/mm3 MPV 10.6 (9.4-12.3) fl Neut % (Auto) 32.5 L (34.0-67.9) % Lymph % (Auto) 61.3 H (21.8-53.1) % Ransom % (Auto) 4.2 L (5.3-12.2) % Eos % (Auto) 0.3 L (0.8-7.0) Baso % (Auto) 1.7 H (0.1-1.2) % Neut # (Auto) 7.30 H (1.78-5.38) K/mm3 Lymph # (Auto) 13.72 H (1.32-3.57) K/mm3 Ransom # (Auto) 0.94 H (0.30-0.82) K/mm3 Eos # (Auto) 0.06 (0.04-0.54) K/mm3 Baso # (Auto) 0.37 H (0.01-0.08) K/mm3 Manual Slide Review Abnormal smear Sodium 139 (136-145) mEq/L Potassium 4.4 (3.5-5.1) mEq/L Chloride 99 (98-107) mEq/L Carbon Dioxide 37 H (21-32) mEq/L Anion Gap 7.4 (5-15) BUN 18 (7-18) mg/dL Creatinine 0.8 (0.7-1.3) mg/dL Est Cr Clr Drug Dosing 77.33 mL/min Estimated GFR (MDRD) > 60 (>60) mL/min BUN/Creatinine Ratio 22.5 H (14-18) Glucose 114 (83-115) mg/dL Calcium 8.8 (8.5-10.1) mg/dL Total Bilirubin 0.9 (0.2-1.0) mg/dL AST 14 L (15-37) U/L ALT 14 L (16-63) U/L Alkaline Phosphatase 61 (46-116) U/L Troponin I 0.020 (0.00-0.056) ng/mL Total Protein 6.6 (6.4-8.2) g/dl Albumin 2.9 L (3.4-5.0) g/dl Globulin 3.7 gm/dL Albumin/Globulin Ratio 0.8 L (1-2) Meds: Medications Generic Name Dose Route Start Last Admin Trade Name Freq PRN Reason Stop Dose Admin Nitroglycerin 0.4 mg 05/02/19 02:53 05/02/19 02:57 Nitrostat SL 0.4 mg Q5M PRN Administration Chest Pain - Re-Assessments/Exams Free Text/Narrative Re-Assessment/Exam: 05/02/19 03:29 The patient's chest pains and had subsided significantly by the time of my interview he was down to about a 3/10. He was given a nitroglycerin and his pain completely resolved.. The patient is a DNR. The daughter and the patient had some questions about what to do with his overall situation they wish for no invasive workups or really any sort of a workup at this point because with a don 't wish to do anything with what is found he has his CLL B-cell type as well as multiple other medical problems. We had a discussion about future interventions when this chest pain comes back and we will send him home with some nitroglycerin. The patient and his daughter wished for us to cancel testing ordered today and they will continue to work with home health and hospice. the patient will be discharged with nitroglycerin he has oxycodone at home however does not like to take it. Departure - Departure Time of Disposition: 03:32 Disposition: Home, Self-Care 01 Clinical Impression: Angina pectoris Prescriptions: Nitroglycerin [Nitrostat] 0.4 mg SL ASDIRECTED PRN #10 tab.sl PRN Reason: Chest Pain Referrals: PCP,Not In Area [Primary Care Provider] - Forms: ED Department Discharge Additional Instructions: Return to the emergency room if you need to for any questions problems or concerns. Use the nitroglycerin as we discussed. [facility]. - My Orders Last 24 Hours: My Active Orders 05/02/19 02:46 Chest 1V Frontal [CR] Stat EKG 12 Lead [EK] Stat 05/02/19 02:47 EKG Documentation Completion [RC] ASDIRECTED 05/02/19 02:53 Nitroglycerin [Nitrostat] 0.4 mg SL Q5M PRN - Assessment/Plan Last 24 Hours: My Active Orders 05/02/19 02:46 Chest 1V Frontal [CR] Stat EKG 12 Lead [EK] Stat 05/02/19 02:47 EKG Documentation Completion [RC] ASDIRECTED 05/02/19 02:53 Nitroglycerin [Nitrostat] 0.4 mg SL Q5M PRN
[2019-05-02] MEDS ORDERED: Nitroglycerin 0.4 MG Tab.SL SL PRN (02:53)
== END 2019-05-02 03:57 | disposition home or self-care (01) ==
LOC: JD.ED 02:26
DX: I20.9 Angina pectoris, unspecified (principal); I10 Essential (primary) hypertension; J44.9 Chronic obstructive pulmonary disease, unspecified; K21.9 Gastro-esophageal reflux disease without esophagitis; N40.0 Benign prostatic hyperplasia without lower urinary tract symptoms; Z79.899 Other long term (current) drug therapy; Z79.51 Long term (current) use of inhaled steroids
CPT/HCPCS: 36415; 80053; 84484; 85025; 93005; 99285; A9270; 93010; 99284